=== PATIENT | female | born 1945 | race Caucasian/White ===

== ENCOUNTER 2018-07-28 13:38 | Inpatient (IN) ==
--- NOTE | 2018-07-28 13:59 | Emergency Department Note ---
Disposition Clinical Impression: Enlarged thyroid, Hepatic steatosis, Dilatation of pulmonic artery, Transaminitis Sacral fracture, closed Qualifiers: Encounter type: initial encounter Zone of sacrum fracture: unspecified portion of sacrum Qualified Code(s): S32.10XA - Unspecified fracture of sacrum, initial encounter for closed fracture Fall Qualifiers: Encounter type: initial encounter Qualified Code(s): W19.XXXA - Unspecified fall, initial encounter Pneumonia Qualifiers: Pneumonia type: due to unspecified organism Laterality: unspecified laterality Lung location: unspecified part of lung Qualified Code(s): J18.9 - Pneumonia, unspecified organism Bimalleolar fracture of left ankle Qualifiers: Encounter type: initial encounter Fracture type: closed Qualified Code(s): S82.842A - Displaced bimalleolar fracture of left lower leg, initial encounter for closed fracture Closed fracture of right distal fibula Qualifiers: Encounter type: initial encounter Fracture morphology: unspecified fracture morphology Qualified Code(s): S82.831A - Other fracture of upper and lower end of right fibula, initial encounter for closed fracture Disposition: Admitted As Inpatient Condition: Serious Referrals: Radha Garza MD [Primary Care Provider] - Forms: ED Satisfaction Letter Time of Disposition: 18:16 Fall HPI - General Chief Complaint: ED Extremity Injury, Lower Stated Complaint: bilat tib fib facture Time Seen by Provider: 07/28/18 13:47 Nursing Notes Reviewed: Yes Vital Signs Reviewed: Yes - History of Present Illness HPI Narrative: 72-year-old female presents from home via EMS to [facility] where she had initial evaluation and was subsequently [facility] Patient is sleeping but will arouse. She goes back to sleep. History obtained by daughter at bedside. Patient lives at home with family. At 7:30 this morning, she got up to walk to the bathroom and fell. Unknown cause of the fall. Daughter states that the patient does not remember the fall. She had obvious deformation of bilateral ankles. Review of systems limited secondary to patient's mental status. - Related Data Allergies Allergy/AdvReac Type Severity Reaction Status Date / Time No Known Allergies Allergy Verified 07/28/18 17:51 All systems ED: reviewed and negative except as stated. Review of Systems: As Per HPI Physical Exam Vital Signs Reviewed General: Patient is somnolent, sonorous, and in no acute distress. Head: atraumatic, normocephalic Eye: normal appearance, PERRL, EOMI, no scleral icterus, no conjunctival injection ENT: mucous membranes moist, normal external ear exam Neck: normal inspection, trachea midline, full ROM Chest: normal inspection, symmetric chest rise Respiratory: Poor respiratory effort. Bilateral breath sounds are even with scattered wheeze. No crackles or rhonchi. Cardiovascular: Regular rate and rhythm. No clicks, rubs, gallops, or murmors. Normal heart sounds. Bilateral radial pulses 2/4 equal. No pedal edema. Brisk capillary refill in bilateral great toes. Abdomen: Bowel sounds present normoactive. Abdomen is soft, nondistended, and nontender. No guarding or rebound. Musculoskeletal: Spontaneously moving all extremities. Skin: warm, dry, intact. Neuro: GCS 15. She is able to wiggle both right and left toes and has sensation to light touch as well as pinch. Psych: Patient's affect is appropriate for situation. Course Course Narrative: At [facility] X-ray right ankle shows comminuted slightly angled fracture of the distal shaft of the right fibula. Fracture displacement at the base of the right medial malleolus. Disruption of the right mortise joint with diffuse soft tissue swelling. X-ray left tibia-fibula shows bimalleolar fracture with both lateral posterior displacement. X-ray left foot shows disruption of left mortise joint with fracture of distal fibula. Partial posterior subluxation of talus with respect tibia. Diffuse soft tissue swelling. Urinalysis not concerning for UTI. Patient given 4 mg morphine, 4 mg Zofran both IV. 16:20 Discussed the patient with emissions engineer ortho, Dr. Escalona. He recommends we speak with podiatry. Discussed the patient with Dr. Stewart, podiatry. He will be operated patient tomorrow. He requests admission to the hospitalist given the patient's comorbidities. Nothing by mouth after midnight. Serum hematology is unremarkable. Serum chemistry shows transaminitis. Normal lipase. CT head without contrast unremarkable for etiology read. CT cervical spine shows no acute changes per radiology read. CT chest shows enlarged heterogeneous thyroid as well as dilated main pulmonary artery suspicious for pulmonary hypertension CT abdomen pelvis shows nondisplaced age-indeterminate sacral fracture, mild hepatic steatosis. X-ray chest concerning for CHF, left lower lobe pneumonia, cardiomegaly. Hilar enlargement-CT chest recommended. X-ray knee shows no acute changes. X-ray pelvis is unremarkable. X-ray Right tibia-fibula and right ankle shows comminuted distal fibular fracture with displacement of medial malleoli. Empiric azithromycin and ceftriaxone for community-acquired pneumonia. Patient's pain well-controlled. I discussed the above with the admitting hospitalist, Dr. Leonard, he agrees to accept the patient for continued evaluation monitoring. Cervical Spine CT 07/28/18 13:52 IMPRESSION: No acute cervical spine fracture. Multilevel degenerative change Heterogeneously enlarged thyroid tissue as described. Correlate with ultrasound D/ / Willis Cruz / Willis Cruz Interpreting Provider: Willis Cruz Chest X-Ray 07/28/18 13:52 IMPRESSION: 1. Findings typical of congestive heart failure. 2. Sequela related to pulmonary edema versus pneumonia lateral lower left lung. Probable small left pleural effusion. 3. Prominent right hilar silhouette is similar but larger when compared with prior study, most likely related to chronic main pulmonary artery enlargement though underlying adenopathy or mass is a consideration as well. Attention to this area on follow-up IV contrast-enhanced CT chest is recommended. 4. Calcific atherosclerosis aorta. 5. Cardiomegaly. RECOMMENDATION: IV contrast-enhanced CT chest D/ / Ranulfo Penny / Ranulfo Penny Interpreting Provider: Ranulfo Penny Pelvis X-Ray 07/28/18 13:52 IMPRESSION: Unremarkable AP pelvis radiograph. If pain persists or worsens, then additional evaluation with MRI is indicated to ensure no underlying radiographically occult process such as fracture, AVN or transient osteoporosis. D/ / Ranulfo Penny / Ranulfo Penny Interpreting Provider: Ranulfo Penny Foot X-Ray 07/28/18 13:59 IMPRESSION: Right tib-fib/right ankle: Comminuted fracture of the distal fibula, moderately displaced fracture of the medial malleolus and findings suspicious for nondisplaced fracture of the fibular head. Medial displacement of distal tibia in relation to the talus. D/ / Ab Mayen MD / Ab Mayen MD Interpreting Provider: Ab Mayen MD Tibia/Fibula X-Ray 07/28/18 13:59 IMPRESSION: Right tib-fib/right ankle: Comminuted fracture of the distal fibula, moderately displaced fracture of the medial malleolus and findings suspicious for nondisplaced fracture of the fibular head. Medial displacement of distal tibia in relation to the talus. D/ / Ab Mayen MD / Ab Mayen MD Interpreting Provider: Ab Mayen MD Knee X-Ray 07/28/18 14:54 IMPRESSION: 1. No acute bony or joint abnormality in either knee 2. Tricompartmental osteoarthritic changes noted in both knees D/ / Jamie Parker MD / Jamie Parker MD Interpreting Provider: Jamie Parker MD Head CT 07/28/18 15:35 IMPRESSION: No acute intracranial abnormality. D/ / Roopa Blanca Cha, MD / Roopa Blanca Cha, MD Interpreting Provider: Roopa Blanca Cha, MD Abdomen/Pelvis CT 07/28/18 15:49 IMPRESSION: Age-indeterminate nondisplaced fracture of the sacrum. Correlate for point tenderness. Dilated main pulmonary artery which can be seen with pulmonary hypertension. Bilateral airspace disease could represent atelectasis or pneumonia. Enlarged and heterogeneous thyroid. Consider ultrasound for further evaluation. Mediastinal lymphadenopathy is unchanged from March of 2013. Mild hepatic steatosis. D/ / Ab Mayen MD / bA Mayen MD Interpreting Provider: Ab Mayen MD Chest CT 07/28/18 17:00 IMPRESSION: Age-indeterminate nondisplaced fracture of the sacrum. Correlate for point tenderness. Dilated main pulmonary artery which can be seen with pulmonary hypertension. Bilateral airspace disease could represent atelectasis or pneumonia. Enlarged and heterogeneous thyroid. Consider ultrasound for further evaluation. Mediastinal lymphadenopathy is unchanged from March of 2013. Mild hepatic steatosis. D/ / Ab Mayen MD / Ab Mayen MD Interpreting Provider: Ab Mayen MD Vital Signs Temperature 97.8 F 07/28/18 13:47 Pulse Rate 89 07/28/18 13:47 Respiratory Rate 10 07/28/18 13:47 Blood Pressure 136/94 07/28/18 13:47 O2 Sat by Pulse Oximetry 98 07/28/18 13:47 Temperature 97.8 F 07/28/18 13:47 Pulse Rate 91 07/28/18 17:49 Respiratory Rate 14 07/28/18 17:49 Blood Pressure 126/75 07/28/18 17:49 O2 Sat by Pulse Oximetry 99 07/28/18 17:49 Oxygen Delivery Oxygen Delivery Oximizer Fall - Lab Data Result diagrams: 07/28/18 13:52 07/28/18 13:52 Lab Results 07/28/18 07/28/18 07/28/18 Range/Units 13:52 13:52 13:52 WBC 7.5 (4.3-11.1) K/mcL RBC 5.27 H (3.82-4.97) M/mcL Hgb 15.4 (11.5-15.4) g/dL Hct 50.7 H (35.3-44.9) % MCV 96.2 (83.0-100.0) fL MCH 29.2 (28.0-33.3) pg MCHC 30.4 L (31.6-35.5) g/dL RDW 14.4 (11.5-14.5) % Plt Count 174 (140-400) K/mcL MPV 9.9 (9.4-12.4) fL Immature Gran % 0.9 (0-4) % Seg Neutrophils % 70.2 % Lymphocytes % 20.7 % Monocytes % 7.8 % Eosinophils % 0.1 % Basophils % 0.3 % Neutrophils # 5.2 (1.6-8.9) K/mcL Lymphocytes # 1.6 (0.6-4.6) K/mcL Monocytes # 0.6 (0.0-1.3) K/mcL Eosinophils # 0.0 (0.0-0.6) K/mcL Basophils # 0.0 (0.0-0.2) K/mcL Nucleated RBCs/100 WBC 0.9 H (0) /100 WBC PT 16.2 H (9.4-12.1) Seconds INR 1.4 APTT 28.3 (26.0-36.0) Seconds Sodium 141 (136-145) mEq/L Potassium 3.8 (3.5-5.1) mEq/L Chloride 98 (98-107) mEq/L Carbon Dioxide 32 H (23-29) mEq/L BUN 41 H (8-23) mg/dL Creatinine 1.07 (0.60-1.20) mg/dL Est GFR ( Amer) > 60 (> 60) Est GFR (Non-Af Amer) 50 L (> 60) BUN/Creatinine Ratio 38 H (6-26) Glucose 126 H (70-105) mg/dL Calculated Osmolality 304 H (280-300) Calcium 8.6 (8.6-10.3) mg/dL Total Bilirubin 0.7 (0.3-1.0) mg/dL AST 749 H (13-39) Units/L ALT 1065 H (7-52) Units/L Alkaline Phosphatase 111 H (34-104) Units/L Ammonia (16-53) mcmol/L Serum Total Protein 6.3 L (6.4-8.9) g/dL Albumin 3.6 (3.5-5.7) g/dL Globulin 2.7 (2.4-3.5) g/dL Albumin/Globulin Ratio 1.3 (1.1-2.2) Lipase 11 (11-82) Units/L Specimen Rejected 07/28/18 07/28/18 Range/Units 16:52 17:00 WBC (4.3-11.1) K/mcL RBC (3.82-4.97) M/mcL Hgb (11.5-15.4) g/dL Hct (35.3-44.9) % MCV (83.0-100.0) fL MCH (28.0-33.3) pg MCHC (31.6-35.5) g/dL RDW (11.5-14.5) % Plt Count (140-400) K/mcL MPV (9.4-12.4) fL Immature Gran % (0-4) % Seg Neutrophils % % Lymphocytes % % Monocytes % % Eosinophils % % Basophils % % Neutrophils # (1.6-8.9) K/mcL Lymphocytes # (0.6-4.6) K/mcL Monocytes # (0.0-1.3) K/mcL Eosinophils # (0.0-0.6) K/mcL Basophils # (0.0-0.2) K/mcL Nucleated RBCs/100 WBC (0) /100 WBC PT (9.4-12.1) Seconds INR APTT (26.0-36.0) Seconds Sodium (136-145) mEq/L Potassium (3.5-5.1) mEq/L Chloride (98-107) mEq/L Carbon Dioxide (23-29) mEq/L BUN (8-23) mg/dL Creatinine (0.60-1.20) mg/dL Est GFR ( Amer) (> 60) Est GFR (Non-Af Amer) (> 60) BUN/Creatinine Ratio (6-26) Glucose (70-105) mg/dL Calculated Osmolality (280-300) Calcium (8.6-10.3) mg/dL Total Bilirubin (0.3-1.0) mg/dL AST (13-39) Units/L ALT (7-52) Units/L Alkaline Phosphatase (34-104) Units/L Ammonia 59 H (16-53) mcmol/L Serum Total Protein (6.4-8.9) g/dL Albumin (3.5-5.7) g/dL Globulin (2.4-3.5) g/dL Albumin/Globulin Ratio (1.1-2.2) Lipase (11-82) Units/L Specimen Rejected Hemolyzed
[2018-07-28 14:46] LABS: Basophils % 0.3 %; Eosinophils % 0.1 %; Hematocrit 50.7 % (35.3-44.9); Hemoglobin 15.4 g/dL (11.5-15.4); Immature Granulocytes % 0.9 % (0-4); Lymphocytes # 1.6 K/mcL (0.6-4.6); Lymphocytes % 20.7 %; Mean Corpuscular HGB Conc 30.4 g/dL (31.6-35.5); Mean Corpuscular Hemoglobin 29.2 pg (28.0-33.3); Mean Corpuscular Volume 96.2 fL (83.0-100.0); Mean Platelet Volume 9.9 fL (9.4-12.4); Monocytes # 0.6 K/mcL (0.0-1.3); Monocytes % 7.8 %; Neutrophils # 5.2 K/mcL (1.6-8.9); Nucleated Red Blood Cells 0.9 /100 WBC (0); Platelet Count 174 K/mcL (140-400); Red Blood Count 5.27 M/mcL (3.82-4.97); Red Cell Distribution Width 14.4 % (11.5-14.5); Segmented Neutrophils % 70.2 %
[2018-07-28 14:48] LABS: INR 1.4; Prothrombin Time 16.2 Seconds (9.4-12.1)
[2018-07-28 14:51] LABS: Activated Partial Thrombo Time 28.3 Seconds (26.0-36.0)
[2018-07-28] MEDS ORDERED: Isovue-370 500 ML BOTTLE IVP ONE ×2 (14:53→15:49)
[2018-07-28 15:31] LABS: Alanine Aminotransferase 1065 Units/L (7-52); Albumin 3.6 g/dL (3.5-5.7); Albumin/Globulin Ratio 1.3 (1.1-2.2); Alkaline Phosphatase 111 Units/L (34-104); Aspartate Amino Transferase 749 Units/L (13-39); BUN/Creatinine Ratio 38 (6-26); Bilirubin,Total 0.7 mg/dL (0.3-1.0); Blood Urea Nitrogen 41 mg/dL (8-23); Calcium 8.6 mg/dL (8.6-10.3); Carbon Dioxide 32 mEq/L (23-29); Chloride 98 mEq/L (98-107); Globulin 2.7 g/dL (2.4-3.5); Glucose 126 mg/dL (70-105); Osmolality,Calculated 304 (280-300); Potassium 3.8 mEq/L (3.5-5.1); Sodium 141 mEq/L (136-145); Total Protein 6.3 g/dL (6.4-8.9); eGFR For Non-African Americans 50 (> 60)
[2018-07-28 18:08] LABS: Lipase 11 Units/L (11-82)
[2018-07-28] MEDS ORDERED: Azithromycin 500 MG in D5% in Water 250 ML IVPB ONE (18:32)
[2018-07-28] MEDS ORDERED: cefTRIAXone 2,000 MG in 0.9 % Sodium Chloride Mini Bag 100 ML IVPB ONE (18:32)
--- NOTE | 2018-07-28 18:32 | Emergency Department Note ---
Disposition Clinical Impression: Enlarged thyroid, Hepatic steatosis, Dilatation of pulmonic artery, Transaminitis Sacral fracture, closed Qualifiers: Encounter type: initial encounter Zone of sacrum fracture: unspecified portion of sacrum Qualified Code(s): S32.10XA - Unspecified fracture of sacrum, initial encounter for closed fracture Fall Qualifiers: Encounter type: initial encounter Qualified Code(s): W19.XXXA - Unspecified fall, initial encounter Pneumonia Qualifiers: Pneumonia type: due to unspecified organism Laterality: unspecified laterality Lung location: unspecified part of lung Qualified Code(s): J18.9 - Pneumonia, unspecified organism Bimalleolar fracture of left ankle Qualifiers: Encounter type: initial encounter Fracture type: closed Qualified Code(s): S82.842A - Displaced bimalleolar fracture of left lower leg, initial encounter for closed fracture Closed fracture of right distal fibula Qualifiers: Encounter type: initial encounter Fracture morphology: unspecified fracture morphology Qualified Code(s): S82.831A - Other fracture of upper and lower end of right fibula, initial encounter for closed fracture Disposition: Admitted As Inpatient Condition: Serious General Adult HPI - General Chief complaint: ED Extremity Injury, Lower Stated complaint: bilat tib fib facture Time Seen by Provider: 07/28/18 13:47 Source: EMS Limitations: altered mental status - History of Present Illness Pain Scale: 0 - Related Data Allergies Allergy/AdvReac Type Severity Reaction Status Date / Time No Known Allergies Allergy Verified 07/28/18 17:51 Past Medical History - Past Medical History Medical history: Reports: CHF, COPD, hyperlipidemia, hypertension Psychiatric history: Reports: no psych history - Social History Smoking Status: Current every day smoker Smokeless Tobacco Status: No Alcohol use: Reports: none Drug use: Reports: none Physical Exam - General Limitations: altered mental status General appearance: lethargic Course Vital Signs Temperature 97.8 F 07/28/18 13:47 Pulse Rate 89 07/28/18 13:47 Respiratory Rate 10 07/28/18 13:47 Blood Pressure 136/94 07/28/18 13:47 O2 Sat by Pulse Oximetry 98 07/28/18 13:47 Temperature 97.8 F 07/28/18 13:47 Pulse Rate 91 07/28/18 17:49 Respiratory Rate 14 07/28/18 17:49 Blood Pressure 126/75 07/28/18 17:49 O2 Sat by Pulse Oximetry 99 07/28/18 17:49 Oxygen Delivery Oxygen Delivery Oximizer Medical Decision Making - Lab Data Result diagrams: 07/28/18 13:52 07/28/18 13:52 Lab Results 07/28/18 07/28/18 07/28/18 Range/Units 13:52 13:52 13:52 WBC 7.5 (4.3-11.1) K/mcL RBC 5.27 H (3.82-4.97) M/mcL Hgb 15.4 (11.5-15.4) g/dL Hct 50.7 H (35.3-44.9) % MCV 96.2 (83.0-100.0) fL MCH 29.2 (28.0-33.3) pg MCHC 30.4 L (31.6-35.5) g/dL RDW 14.4 (11.5-14.5) % Plt Count 174 (140-400) K/mcL MPV 9.9 (9.4-12.4) fL Immature Gran % 0.9 (0-4) % Seg Neutrophils % 70.2 % Lymphocytes % 20.7 % Monocytes % 7.8 % Eosinophils % 0.1 % Basophils % 0.3 % Neutrophils # 5.2 (1.6-8.9) K/mcL Lymphocytes # 1.6 (0.6-4.6) K/mcL Monocytes # 0.6 (0.0-1.3) K/mcL Eosinophils # 0.0 (0.0-0.6) K/mcL Basophils # 0.0 (0.0-0.2) K/mcL Nucleated RBCs/100 WBC 0.9 H (0) /100 WBC PT 16.2 H (9.4-12.1) Seconds INR 1.4 APTT 28.3 (26.0-36.0) Seconds Sodium 141 (136-145) mEq/L Potassium 3.8 (3.5-5.1) mEq/L Chloride 98 (98-107) mEq/L Carbon Dioxide 32 H (23-29) mEq/L BUN 41 H (8-23) mg/dL Creatinine 1.07 (0.60-1.20) mg/dL Est GFR ( Amer) > 60 (> 60) Est GFR (Non-Af Amer) 50 L (> 60) BUN/Creatinine Ratio 38 H (6-26) Glucose 126 H (70-105) mg/dL Calculated Osmolality 304 H (280-300) Calcium 8.6 (8.6-10.3) mg/dL Total Bilirubin 0.7 (0.3-1.0) mg/dL AST 749 H (13-39) Units/L ALT 1065 H (7-52) Units/L Alkaline Phosphatase 111 H (34-104) Units/L Ammonia (16-53) mcmol/L Creatine Kinase 31 (30-223) Units/L Serum Total Protein 6.3 L (6.4-8.9) g/dL Albumin 3.6 (3.5-5.7) g/dL Globulin 2.7 (2.4-3.5) g/dL Albumin/Globulin Ratio 1.3 (1.1-2.2) Lipase 11 (11-82) Units/L Specimen Rejected 07/28/18 07/28/18 Range/Units 16:52 17:00 WBC (4.3-11.1) K/mcL RBC (3.82-4.97) M/mcL Hgb (11.5-15.4) g/dL Hct (35.3-44.9) % MCV (83.0-100.0) fL MCH (28.0-33.3) pg MCHC (31.6-35.5) g/dL RDW (11.5-14.5) % Plt Count (140-400) K/mcL MPV (9.4-12.4) fL Immature Gran % (0-4) % Seg Neutrophils % % Lymphocytes % % Monocytes % % Eosinophils % % Basophils % % Neutrophils # (1.6-8.9) K/mcL Lymphocytes # (0.6-4.6) K/mcL Monocytes # (0.0-1.3) K/mcL Eosinophils # (0.0-0.6) K/mcL Basophils # (0.0-0.2) K/mcL Nucleated RBCs/100 WBC (0) /100 WBC PT (9.4-12.1) Seconds INR APTT (26.0-36.0) Seconds Sodium (136-145) mEq/L Potassium (3.5-5.1) mEq/L Chloride (98-107) mEq/L Carbon Dioxide (23-29) mEq/L BUN (8-23) mg/dL Creatinine (0.60-1.20) mg/dL Est GFR ( Amer) (> 60) Est GFR (Non-Af Amer) (> 60) BUN/Creatinine Ratio (6-26) Glucose (70-105) mg/dL Calculated Osmolality (280-300) Calcium (8.6-10.3) mg/dL Total Bilirubin (0.3-1.0) mg/dL AST (13-39) Units/L ALT (7-52) Units/L Alkaline Phosphatase (34-104) Units/L Ammonia 59 H (16-53) mcmol/L Creatine Kinase (30-223) Units/L Serum Total Protein (6.4-8.9) g/dL Albumin (3.5-5.7) g/dL Globulin (2.4-3.5) g/dL Albumin/Globulin Ratio (1.1-2.2) Lipase (11-82) Units/L Specimen Rejected Hemolyzed Attestation Statement - Attestation Attestation: I examined this patient and my medical decision-making was reviewed with the Resident Physician. I agree with the documented findings, disposition and treatment plan as described except to the extent set forth below. 72 year old female with a history of a fall and evaluted at a previous ED today with bilateral tib/fib fractures of which podiatry has been consulted and will operate on tomorrow. Columba also has an age indeterminate sacral fracutre and possible pnuemonia which is likely aspiration with an uknonw down time. PAtint has increase hepatic function but normal bilirubing and piror cholecystectomy. Spoke about case with Dr. sharp who accepts columba for admission to his service
[2018-07-28 18:53] LABS: Creatine Kinase 31 Units/L (30-223)
[2018-07-29 00:08] LABS: ABG Base Excess 12 mEq/L (-2 to 3); ABG HCO3 43 mEq/L (21-27); ABG Oxygen Saturation 90 % (95-98); ABG PCO2 85 mmHg (35-45); ABG PH 7.32 pH Units (7.32-7.45); ABG PO2 68 mmHg (85-104); ABG TCO2 46 mEq/L (20-26)
[2018-07-29] MEDS ORDERED: Naloxone 0.4 MG/ML INJ IVP PRN (00:50)
[2018-07-29] MEDS ORDERED: Acetaminophen 325 MG TABLET PO PRN (00:50)
[2018-07-29] MEDS ORDERED: Ondansetron 4 MG/2 ML VIAL IVP PRN (00:50)
[2018-07-29] MEDS ORDERED: Albuterol 2.5 MG/3 ML NEBULIZER IH PRN (00:59)
[2018-07-29] MEDS ORDERED: Simethicone 80 MG TAB.CHEW PO PRN (01:02)
[2018-07-29] MEDS ORDERED: NON-FORMULARY MEDICATION 1 EACH EACH (Nitroglycerin 0.4 MG) PO SCH (01:15)
[2018-07-29] MEDS ORDERED: Nitroglycerin 0.4 MG TAB.SUBL SL PRN (01:17)
[2018-07-29 02:02] LABS: Basophils % 0.3 %; Eosinophils % 0.2 %; Hematocrit 48.8 % (35.3-44.9); Hemoglobin 14.6 g/dL (11.5-15.4); Immature Granulocytes % 0.7 % (0-4); Lymphocytes # 0.9 K/mcL (0.6-4.6); Mean Corpuscular HGB Conc 29.9 g/dL (31.6-35.5); Mean Corpuscular Hemoglobin 29.1 pg (28.0-33.3); Mean Corpuscular Volume 97.2 fL (83.0-100.0); Mean Platelet Volume 9.9 fL (9.4-12.4); Monocytes # 0.6 K/mcL (0.0-1.3); Monocytes % 10.2 %; Neutrophils # 4.5 K/mcL (1.6-8.9); Nucleated Red Blood Cells 1.5 /100 WBC (0); Platelet Count 131 K/mcL (140-400); Red Blood Count 5.02 M/mcL (3.82-4.97); Red Cell Distribution Width 14.4 % (11.5-14.5); Segmented Neutrophils % 74.6 %
[2018-07-29 02:14] LABS: INR 1.4; Prothrombin Time 15.8 Seconds (9.4-12.1)
[2018-07-29 02:17] LABS: Activated Partial Thrombo Time 27.4 Seconds (26.0-36.0)
[2018-07-29 02:22] LABS: Acetaminophen < 10 mcg/mL (10-20); Salicylate < 2.5 mg/dL (15.0-30.0)
[2018-07-29 02:37] LABS: Alanine Aminotransferase 856 Units/L (7-52); Albumin 3.2 g/dL (3.5-5.7); Albumin/Globulin Ratio 1.3 (1.1-2.2); Alkaline Phosphatase 97 Units/L (34-104); Aspartate Amino Transferase 434 Units/L (13-39); BUN/Creatinine Ratio 35 (6-26); Bilirubin,Direct 0.2 mg/dL (0.0-0.2); Bilirubin,Indirect 0.2 mg/dL (0.0-1.2); Bilirubin,Total 0.4 mg/dL (0.3-1.0); Blood Urea Nitrogen 32 mg/dL (8-23); Calcium 8.3 mg/dL (8.6-10.3); Carbon Dioxide 37 mEq/L (23-29); Chloride 99 mEq/L (98-107); Globulin 2.5 g/dL (2.4-3.5); Glucose 115 mg/dL (70-105); Magnesium 1.5 mg/dL (1.6-2.6); Osmolality,Calculated 302 (280-300); Sodium 142 mEq/L (136-145); Total Protein 5.7 g/dL (6.4-8.9); eGFR For Non-African Americans > 60 (> 60)
--- NOTE | 2018-07-29 03:20 | Internal Med History&Physical ---
Date of Encounter: 07/28/18 Time of Encounter: 21:00 Internal Medicine - H&P: HPI Chief complaint: s/p fall; syncope; ankle fractures Admitted From: Emergency Dept Plans for Post Hospital Care: Transfer [facility] History of present illness: Ms. Navarrete is a 72 year old female who was transferred to our ER from [facility]. She reportedly fell tonight on to the bathroom floor and broke both ankles (tib/fib). ER contacted Dr. Escalona for consultation, but he deferred to Dr. Stewart from podiatry. Patient was then admitted to hospitalist service with a podiatry/orthopedic consultation. Upon my assessment of the patient, patient is somnolent, confused, and a very poor historian. I summoned her daughter to the bedside to provide a history. Patient reportedly actually had a syncopal spell today at home. Her daughter found her on the bathroom floor with both ankles projecting outward and patient landed on her knees. There was no known reported head trauma. However, she had multiple scans in the ER which were negative except for the ankle fractures. Routine labs revealed significant transaminitis on CT of the chest concerning for pneumonia. According to daughter, patient has severe COPD requiring oxygen. Patient was quite somnolent and difficult to arouse. I ordered a stat arterial blood gas, which confirmed respiratory acidosis. I therefore placed her on BiPAP, and we will repeat arterial blood gas in the morning. Regarding her transaminitis, patient does not drink alcohol. She has been using Tylenol for her joint aches and pains. I ordered a stat acetaminophen and salicylate level, both of which were undetectable. Patient and daughter both deny any trauma or injury to her liver or abdomen with today's fall. Past Med Surg Social Fam HX - Past Medical History Source: obtained from family, other (ER records) Medical history: CHF, COPD, hyperlipidemia, hypertension Psychiatric history: no psych history - Past Surgical History Surgical History: hysterectomy - Social History Smoking Status: Current every day smoker Smokeless Tobacco Status: No Alcohol use: none Drug use: none Current living situation: Home, With Family Activity Level: Independent ambulation - Family History Daughter Hx Family Respiratory Disorders: Yes (COPD/ EMPHYSEMA) Father Hx Family Cardiac Disorders: Yes ([place]) Hx Family Endocrine Disorder: Yes (DM) Internal Medicine - H&P: Meds Escitalopram 20 mg PO DAILY 07/28/18 [History] Aspirin 81 mg PO DAILY 07/29/18 [History] Colace 100 mg PO DAILY 07/29/18 [History] Furosemide [Lasix] 40 mg PO DAILY 07/29/18 [History] Ibuprofen 800 mg PO TID PRN 07/29/18 [History] Lansoprazole 30 mg PO DAILY 07/29/18 [History] Lisinopril 10 mg PO DAILY 07/29/18 [History] Montelukast [Singulair] 10 mg PO DAILY 07/29/18 [History] Mucinex Dm ER 600-30 mg Tablet 1,200 mg PO BID 07/29/18 [History] Nitroglycerin 0.4 mg PO Q5MIN 07/29/18 [History] Potassium Chloride 20 mEq/100 mL 20 meq PO DAILY 07/29/18 [History] Simethicone [Gas-X] 80 mg PO BID PRN 07/29/18 [History] Allergy/AdvReac Type Severity Reaction Status Date / Time No Known Allergies Allergy Verified 07/28/18 17:51 ROS unobtainable: due to mental status Review of systems: per daughter: + syncope; no other obtainable ROS - Constitutional Vitals: Temp Pulse Resp BP Pulse Ox 97.8 F 77 20 131/79 92 07/28/18 21:29 07/28/18 21:29 07/29/18 00:30 07/28/18 21:29 07/29/18 00:30 General appearance: Present: A&O X 1, mild distress. Absent: answers questions appropriately Exam: somnolent; arousable to command but then drifts off to sleep - Head Head exam: Present: normal inspection - Eye Eye exam: Present: EOMI, PERRL. Absent: scleral icterus Pupils: Present: normal accommodation - ENT ENT exam: Present: mucous membranes dry, normal oropharynx - Neck Neck exam general surgery: Present: full ROM, supple, trachea midline. Absent: lymphadenopathy, tenderness, nuchal rigidity, thyromegaly - Respiratory Respiratory exam: Present: prolonged expiratory phase, rhonchi, wheezes. Absent: chest wall tenderness, rales - Cardiovascular Cardiovascular exam: Present: distant heart sounds, +S1, +S2. Absent: diastolic murmur, systolic murmur - GI/Abdominal GI/Abdominal exam: Present: normal bowel sounds, soft. Absent: guarding, hepatomegaly, mass, rebound, splenomegaly, tenderness - Extremities Exam Extremities exam: Present: tenderness, warm, radial pulses palpable and symmetrical. Absent: calf tenderness, pedal edema Additional comments: both legs/ankles splinted and wrapped per ER - Back Exam Back exam: Absent: CVA tenderness (L), CVA tenderness (R) - Neurological Exam Neurological exam: Present: altered, no focal deficits Additional comments: somnolent; no focal deficits when awake; close to baseline per daughter - Psychiatric Additional comments: somnolent - Skin Skin exam: Present: dry, intact, warm Internal Med - H&P Results - Labs CBC & Chem 7: 07/29/18 01:43 07/29/18 01:43 Labs: Short CBC 07/28/18 07/29/18 Range/Units 13:52 01:43 WBC 7.5 6.1 (4.3-11.1) K/mcL Hgb 15.4 14.6 (11.5-15.4) g/dL Hct 50.7 H 48.8 H (35.3-44.9) % Plt Count 174 131 L (140-400) K/mcL Neutrophils # 5.2 4.5 (1.6-8.9) K/mcL BMP 07/28/18 07/29/18 13:52 01:43 Sodium 141 142 Potassium 3.8 4.0 Chloride 98 99 Carbon Dioxide 32 H 37 H BUN 41 H 32 H Creatinine 1.07 0.91 Glucose 126 H 115 H Calcium 8.6 8.3 L Liver Function 07/28/18 07/29/18 Range/Units 13:52 01:43 Total Bilirubin 0.7 0.4 (0.3-1.0) mg/dL Direct Bilirubin 0.2 (0.0-0.2) mg/dL AST 749 H 434 H (13-39) Units/L ALT 1065 H 856 H (7-52) Units/L Alkaline Phosphatase 111 H 97 (34-104) Units/L Albumin 3.6 3.2 L (3.5-5.7) g/dL - ABG Interpretation Interpretation: ABG interpreted by me ABG results: 07/28/18 23:57 ABG pH 7.32 ABG pCO2 85 H* ABG pO2 68 L ABG HCO3 43 H ABG Total CO2 46 H ABG O2 Saturation 90 L ABG Base Excess 12 H Interpretation: respiratory acidosis - Impressions ITS Impressions Cervical Spine CT 07/28/18 13:52 IMPRESSION: No acute cervical spine fracture. Multilevel degenerative change Heterogeneously enlarged thyroid tissue as described. Correlate with ultrasound D/ / Willis Cruz / Willis Cruz Interpreting Provider: Willis Cruz Chest X-Ray 07/28/18 13:52 IMPRESSION: 1. Findings typical of congestive heart failure. 2. Sequela related to pulmonary edema versus pneumonia lateral lower left lung. Probable small left pleural effusion. 3. Prominent right hilar silhouette is similar but larger when compared with prior study, most likely related to chronic main pulmonary artery enlargement though underlying adenopathy or mass is a consideration as well. Attention to this area on follow-up IV contrast-enhanced CT chest is recommended. 4. Calcific atherosclerosis aorta. 5. Cardiomegaly. RECOMMENDATION: IV contrast-enhanced CT chest D/ / Ranulfo Penny / Ranulfo Penny Interpreting Provider: Ranulfo Penny Pelvis X-Ray 07/28/18 13:52 IMPRESSION: Unremarkable AP pelvis radiograph. If pain persists or worsens, then additional evaluation with MRI is indicated to ensure no underlying radiographically occult process such as fracture, AVN or transient osteoporosis. D/ / Ranulfo Penny / Ranulfo Penny Interpreting Provider: Ranulfo Penny Foot X-Ray 07/28/18 13:59 IMPRESSION: Right tib-fib/right ankle: Comminuted fracture of the distal fibula, moderately displaced fracture of the medial malleolus and findings suspicious for nondisplaced fracture of the fibular head. Medial displacement of distal tibia in relation to the talus. D/ / Ab Mayen MD / Ab Mayen MD Interpreting Provider: Ab Mayen MD Tibia/Fibula X-Ray 07/28/18 13:59 IMPRESSION: Right tib-fib/right ankle: Comminuted fracture of the distal fibula, moderately displaced fracture of the medial malleolus and findings suspicious for nondisplaced fracture of the fibular head. Medial displacement of distal tibia in relation to the talus. D/ / Ab Mayen MD / Ab Mayen MD Interpreting Provider: Ab Mayen MD Knee X-Ray 07/28/18 14:54 IMPRESSION: 1. No acute bony or joint abnormality in either knee 2. Tricompartmental osteoarthritic changes noted in both knees D/ / Jamie Parker MD / Jamie Parker MD Interpreting Provider: Jamie Parker MD Head CT 07/28/18 15:35 IMPRESSION: No acute intracranial abnormality. D/ / Roopa Blanca Cha, MD / Roopa Blanca Cha, MD Interpreting Provider: Roopa Blanca Cha, MD Abdomen/Pelvis CT 07/28/18 15:49 IMPRESSION: Age-indeterminate nondisplaced fracture of the sacrum. Correlate for point tenderness. Dilated main pulmonary artery which can be seen with pulmonary hypertension. Bilateral airspace disease could represent atelectasis or pneumonia. Enlarged and heterogeneous thyroid. Consider ultrasound for further evaluation. Mediastinal lymphadenopathy is unchanged from March of 2013. Mild hepatic steatosis. D/ / Ab Mayen MD / Ab Mayen MD Interpreting Provider: Ab Mayen MD Chest CT 07/28/18 17:00 IMPRESSION: Age-indeterminate nondisplaced fracture of the sacrum. Correlate for point tenderness. Dilated main pulmonary artery which can be seen with pulmonary hypertension. Bilateral airspace disease could represent atelectasis or pneumonia. Enlarged and heterogeneous thyroid. Consider ultrasound for further evaluation. Mediastinal lymphadenopathy is unchanged from March of 2013. Mild hepatic steatosis. D/ / Ab Mayen MD / Ab Mayen MD Interpreting Provider: Ab Mayen MD - Diagnostic Studies CT scan - chest Status: image reviewed by me (suspect bibasilar pneumonia) - Assessment and Plan (1) Acute respiratory failure with hypoxia and hypercarbia Current Visit: Yes Status: Acute Assessment and plan: 1. I ordered BIPap on patient and will repeat ABG in the morning. 2. Will schedule Duonebs and PRN albuterol nebs. 3. Will schedule steroids. 4. Close monitoring on telemetry and pulse ox. (2) CHF (congestive heart failure) Current Visit: Yes Status: Chronic Assessment and plan: 1. No acute CHF now. 2. Will order ECHO and monitor fluid balance. Qualifiers: Heart failure type: unspecified Heart failure chronicity: chronic Qualified Code(s): I50.9 - Heart failure, unspecified (3) Bimalleolar fracture of left ankle Current Visit: Yes Status: Acute Assessment and plan: 1. Pain control. 2. Consult to Ortho/Podiatry. Qualifiers: Encounter type: initial encounter Fracture type: closed Qualified Code(s): S82.842A - Displaced bimalleolar fracture of left lower leg, initial encounter for closed fracture (4) Pneumonia Current Visit: Yes Status: Suspected Assessment and plan: 1. Blood culture and influenza testing ordered. 2. Will continue IV antibiotics and respiratory treatments as above. Qualifiers: Pneumonia type: due to unspecified organism Laterality: bilateral Lung lo cation: lower lobe of lung Qualified Code(s): J18.1 - Lobar pneumonia, unspecified organism (5) Transaminitis Current Visit: Yes Status: Acute Assessment and plan: 1. Will trend LFT's. 2. ASA and salicylate levels obtained. 3. Liver U/S ordered. (6) DVT prophylaxis Current Visit: Yes Status: Acute Assessment and plan: 1. Heparin SQ.
[2018-07-29] MEDS: traMADol 50 MG TABLET PO PRN ×2 (04:29→22:26)
[2018-07-29] MEDS: Ipratropium/Albuterol Neb 3 ML IH SCH ×4 (04:35→21:47)
[2018-07-29] MEDS: *HR* HYDROcodone/Acet 5/325 mg TABLET PO PRN ×2 (06:18→12:11)
[2018-07-29] MEDS: methylPREDNISolone 125 MG/2 ML VIAL IVP SCH ×2 (06:18→16:54)
[2018-07-29] MEDS: *HR* Heparin 5,000 UNIT/ML VIAL SQ SCH ×2 (06:19→15:02)
[2018-07-29 06:53] LABS: ABG Base Excess 11 mEq/L (-2 to 3); ABG HCO3 41 mEq/L (21-27); ABG Oxygen Saturation 93 % (95-98); ABG PCO2 78 mmHg (35-45); ABG PH 7.33 pH Units (7.32-7.45); ABG PO2 77 mmHg (85-104); ABG TCO2 44 mEq/L (20-26)
[2018-07-29 07:06] LABS: Hepatitis B Surface Antigen Nonreactive (Nonreactive)
[2018-07-29 07:35] LABS: Hepatitis B Core IgM Nonreactive (Nonreactive)
[2018-07-29 07:36] LABS: Hepatitis C Virus Antibody Nonreactive (Nonreactive)
[2018-07-29 07:37] LABS: Hepatitis A Antibody IgM Nonreactive (Nonreactive)
[2018-07-29 08:24] LABS: Creatine Kinase 48 Units/L (30-223); Gamma Glutamyl Transpeptidase 26 Units/L (1-24)
[2018-07-29] MEDS: GuaiFENesin/Dextromethorphan TABLET PO SCH ×2 (09:39→19:45)
[2018-07-29] MEDS: Ringers Solution, Lactated 1,000 ML IVC SCH ×2 (09:47→18:51)
[2018-07-29] MEDS: cefTRIAXone 2,000 MG in Water for inj. (sterile) 20 ML 20 ML IVP SCH (09:48)
--- NOTE | 2018-07-29 10:21 | Event Note ---
Date of Encounter: 07/29/18 Time of Encounter: 10:22 72 year old female Hx of COPD presented with fall, XR showed bilateral ankle fracture. Pt was also found somlent and ABG showed chronic CO2 retention, normal PH and low PO2. BiPAP was applied. Labs showed elevated AST/ALT but normal bili and ALP, not typical for hepatitis. Normal CPK and GGT. Hepatitis panel normal. Pending RUQ US. CT showed mild hepatic steatosis. Poidatry consult.
--- NOTE | 2018-07-29 13:45 | Podiatry Consult Note ---
Date of Encounter: 07/29/18 Time of Encounter: 11:50 Assessment and Plan (1) Bimalleolar fracture of left ankle Current visit: Yes Status: Acute Assessment: -Posterior splint intact, no strike through noted, no swelling above or below splint -Splint removed -Ecchymosis noted medial aspect of left ankle -Edema 1/4 -1/4 PT/DP pulse, cap refill immediate to all digits -Movement of toes noted -No fracture blisters noted Plan: -Closed reduction without anesthesia completed by Dr. Richter -Post reduction x-rays obtained at bedside and reviewed -Posterior splint and sugar-tong splint applied using cast padding, splint, and YIN -No swelling noted above or below splint -Toes pink with immediate cap refill noted -Patient instructed to report any pain that is not relieved with medication, swelling of digits, or toes becoming blueish or purple -Keep lower extremities elevated -Patient to go to surgery tomorrow with Dr. Richter and Dr. Khan for bilateral ORIF ankle fractures -NPO after midnight -Hold Heparin restart on 07/31/18 Qualifiers: Encounter type: initial encounter Fracture type: closed Qualified Code(s): S82.842A - Displaced bimalleolar fracture of left lower leg, initial encounter for closed fracture (2) Closed fracture of right distal fibula Current visit: Yes Status: Acute Assessment: -Posterior splint intact, no strike through noted, no swelling above or below splint -Splint removed -Ecchymosis noted medial aspect of right ankle -Edema 1/4 -1/4 PT/DP pulse, cap refill immediate to all digits -Movement of toes noted -No fracture blisters noted -Tenting noted -X-ray: XR/XR tibia fibula RT IMPRESSION: Right tib-fib/right ankle: Comminuted fracture of the distal fibula, moderately displaced fracture of the medial malleolus and findings suspicious for nondisplaced fracture of the fibular head. Medial displacement of distal tibia in relation to the talus. Plan: -Closed reduction without anesthesia completed by Dr. Richter -Post reduction x-rays obtained at bedside and reviewed -Posterior splint and sugar-tong splint applied using cast padding, splint, and YIN -No swelling noted above or below splint -Toes pink with immediate cap refill noted -Patient instructed to report any pain that is not relieved with medication, swelling of digits, or toes becoming blueish or purple -Keep extremities elevated -Patient to go to surgery tomorrow with Dr. Richter and Dr. Khan for bilateral ORIF ankle fractures -NPO after midnight -Hold Heparin restart on 07/31/18 Qualifiers: Encounter type: initial encounter Fracture morphology: unspecified fracture morphology Qualified Code(s): S82.831A - Other fracture of upper and lower end of right fibula, initial encounter for closed fracture History of Present Illness HPI: Ms. Navarrete is a 72 year old female who presents to the hospital after falling at home yesterday and fracturing bilateral ankles. Patient is somnolent, oriented to name, place, and year. Daughters at bedside report history of confusion over the last few years, but deny diagnosis of dementia. Patient reports she remembers falling but is a poor historian to the events leading up to her hospitalization. Patient's daughter reports patient went to stand and her ankles were turned in an awkward position and she fell in the bathroom. It is unknown if the patient had a syncopal episode, when asked the daughter denied patient losing consciousness. Patient's past medical history includes CHF, COPD, HTN, and hyperlipidemia, this was obtained from patient's daughters and medical records. Podiatry was consulted due to bilateral ankle fractures. Patient reports she is a 1 ppd smoker, denies any alcohol or illicit drug use. Bilateral posterior splints intact, no strike through noted. No swelling noted above or below splint. Past Med Surg Social Fam HX - Past Medical History Medical history: CHF, COPD, hyperlipidemia, hypertension Psychiatric history: no psych history - Past Surgical History Surgical History: hysterectomy - Social History Smoking Status: Current every day smoker Smokeless Tobacco Status: No Alcohol use: none Drug use: none - Family History Daughter Hx Family Respiratory Disorders: Yes (COPD/ EMPHYSEMA) Father Hx Family Cardiac Disorders: Yes ([place]) Hx Family Endocrine Disorder: Yes (DM) Medications and Allergies Escitalopram 20 mg PO DAILY 07/28/18 [History] Aspirin 81 mg PO DAILY 07/29/18 [History] Colace 100 mg PO DAILY 07/29/18 [History] Ibuprofen 800 mg PO TID PRN 07/29/18 [History] Lansoprazole 30 mg PO DAILY 07/29/18 [History] Lisinopril 10 mg PO DAILY 07/29/18 [History] Mucinex Dm ER 600-30 mg Tablet 1,200 mg PO BID 07/29/18 [History] Nitroglycerin 0.4 mg PO Q5MIN 07/29/18 [History] Potassium Chloride 20 mEq/100 mL 20 meq PO DAILY 07/29/18 [History] RX: Furosemide [Lasix] 40 mg PO DAILY 07/29/18 [History] RX: Montelukast [Singulair] 10 mg PO DAILY 07/29/18 [History] RX: Simethicone [Gas-X] 80 mg PO BID PRN 07/29/18 [History] Allergy/AdvReac Type Severity Reaction Status Date / Time No Known Allergies Allergy Verified 07/28/18 17:51 All Systems Reviewed: The remainder of the systems were reviewed and are negative Review of systems: As per HPI. Patient is somnolent, she does arouse with verbal stimulation but drifts back to sleep quickly. She reports pain all over. Physical Exam - Constitutional Vitals: Temp Pulse Resp BP Pulse Ox 97.1 F L 88 16 116/73 91 07/29/18 11:09 07/29/18 11:09 07/29/18 11:09 07/29/18 11:09 07/29/18 11:09 Exam: Constitutional: Patient is somnolent, arouses to verbal stimulation but drifts back to sleep quickly, oriented to name, place, and year, no acute distress noted, well nourished Vascular: 1/4 DP/PT pulses, cap refill less than 3 seconds, no pain with calf squeeze bilaterally, 1/4 edema noted, skin warm from toes to tibia Necrological: Sensation intact, proprioception intact Dermatological: Obvious deformity noted to bilateral ankles, no fracture blisters noted, tenting noted right ankle, bilateral ankles with ecchymosis n oted Musculoskeletal: 3/5 muscle strength noted bilaterally, movement of all toes noted Results - Labs Result Diagrams: 07/29/18 01:43 07/29/18 01:43 Labs: Abnormal lab results RBC 5.02 M/mcL (3.82-4.97) H 07/29/18 01:43 Hct 48.8 % (35.3-44.9) H 07/29/18 01:43 MCHC 29.9 g/dL (31.6-35.5) L 07/29/18 01:43 Plt Count 131 K/mcL (140-400) L 07/29/18 01:43 Nucleated RBCs/100 WBC 1.5 /100 WBC (0) H 07/29/18 01:43 PT 15.8 Seconds (9.4-12.1) H 07/29/18 01:43 ABG pCO2 78 mmHg (35-45) H* 07/29/18 06:43 ABG pO2 77 mmHg (85-104) L 07/29/18 06:43 ABG HCO3 41 mEq/L (21-27) H 07/29/18 06:43 ABG Total CO2 44 mEq/L (20-26) H 07/29/18 06:43 ABG O2 Saturation 93 % (95-98) L 07/29/18 06:43 ABG Base Excess 11 mEq/L (-2 to 3) H 07/29/18 06:43 Carbon Dioxide 37 mEq/L (23-29) H 07/29/18 01:43 BUN 32 mg/dL (8-23) H 07/29/18 01:43 BUN/Creatinine Ratio 35 (6-26) H 07/29/18 01:43 Glucose 115 mg/dL (70-105) H 07/29/18 01:43 Calculated Osmolality 302 (280-300) H 07/29/18 01:43 Calcium 8.3 mg/dL (8.6-10.3) L 07/29/18 01:43 Magnesium 1.5 mg/dL (1.6-2.6) L 07/29/18 01:43 GGT 26 Units/L (1-24) H 07/29/18 01:43 AST 434 Units/L (13-39) H 07/29/18 01:43 ALT 856 Units/L (7-52) H 07/29/18 01:43 Ammonia 59 mcmol/L (16-53) H 07/28/18 17:00 Serum Total Protein 5.7 g/dL (6.4-8.9) L 07/29/18 01:43 Albumin 3.2 g/dL (3.5-5.7) L 07/29/18 01:43 Salicylates < 2.5 mg/dL (15.0-30.0) L 07/29/18 01:43 Acetaminophen < 10 mcg/mL (10-20) L 07/29/18 01:43 H & H 07/28/18 07/29/18 Range/Units 13:52 01:43 Hgb 15.4 14.6 (11.5-15.4) g/dL Hct 50.7 H 48.8 H (35.3-44.9) % All other labs normal. Consult Discharge Plan - Plan Referrals: Radha Garza MD [Primary Care Provider] -
--- NOTE | 2018-07-29 14:15 | Event Note ---
Date of Encounter: 07/29/18 Time of Encounter: 14:10 Pre-op medical clearance Revised cardiac risk ndex about 4, moderate risk. Pt also suspected for pneumonia and currently treated with IV abx. She has chronic COPD and ABG showed PCO2 atout 80, which appears to her baseline. AST/ALT was elevated but she does not seem having acute hepatitis or acute hepatic failure. We will continue monitoring her Lab and correct electrolytes. Keep BiPAP on, check ABG if needed. NPO, possible surgery this afternoon or tomorrow morning per podiatry.
[2018-07-29] MEDS ORDERED: *HR* HYDROmorphone (PF) 1 MG/ML SYRINGE IVP ONE (16:36)
--- NOTE | 2018-07-29 16:39 | Electrocardiograph Report ---
[place] [id number] Test Date: 2018-07-29 Pat Name: Judi Navarrete Department: 114 Room: [facility] Gender: F Lunch Counter Manager: SYLWIA : 1945 Requested By: Alvin Gabriel Order Number: [id number] Reading MD: Aria Saxena Measurements Intervals [place] Rate: 73 P: 61 CA: 157 QRS: 11 QRSD: 93 T: 113 QT: 399 QTc: 425 Interpretive Statements SINUS RHYTHM NONSPECIFIC ST ABNORMALITIES Electronically Signed On 07-29-2018 16:38:26 EDT by Aria Saxena
--- NOTE | 2018-07-29 17:29 | Event Note ---
Date of Encounter: 07/29/18 Time of Encounter: 17:25 Pt had bedside close reduction. Pt was found desating to low 80s after the procedure for brief of period of time ( less than 3 mins). BiPAP re-applied with FiO2 60%. pt SpO2 back to mid 90s. ABG ordered. Pt will be transferred to .
[2018-07-29 17:58] LABS: ABG Base Excess 10 mEq/L (-2 to 3); ABG HCO3 41 mEq/L (21-27); ABG Oxygen Saturation 95 % (95-98); ABG PCO2 89 mmHg (35-45); ABG PH 7.27 pH Units (7.32-7.45); ABG PO2 91 mmHg (85-104); ABG TCO2 44 mEq/L (20-26)
[2018-07-29] MEDS ORDERED: Azithromycin 500 MG in D5% in Water 250 ML IVPB SCH (22:00)
[2018-07-30] MEDS: Ipratropium/Albuterol Neb 3 ML IH SCH ×4 (03:32→21:42)
[2018-07-30] MEDS: Ringers Solution, Lactated 1,000 ML IVC SCH ×2 (05:24→22:34)
[2018-07-30] MEDS: methylPREDNISolone 125 MG/2 ML VIAL IVP SCH ×2 (05:25→17:16)
--- NOTE | 2018-07-30 06:18 | Procedure Note ---
Date of procedure: 07/29/18 Pre-op diagnosis: bilateral displaced bimalleolar ankle fracture Post-op diagnosis: same Procedure: 1. Left closed reduction bimalleolar ankle fracture 2. Right closed reduction bimalleolar ankle fracture No sedation was used. There was noted to be displaced bilateral bimalleolar ankle fracture on Xrays taken on admission to [facility] with tenting of skin at medial ankle. No local anesthetic was used. Bilateral ankle fractures were reduced and improved alignment was noted on bilateral Xrays taken after the fractures were reduced and splinted. She was on NC during the procedures but she appeared stable at the time of reduction. Anesthesia: none Surgeon: Jason Richter Was there an medical laboratory assistant present: Yes [employer] Sales Representative: Lashanda Cam Estimated blood loss (cc): 0 Specimen: None Condition: stable Disposition: floor
[2018-07-30] MEDS: *HR* HYDROcodone/Acet 5/325 mg TABLET PO PRN ×3 (07:52→23:50)
[2018-07-30] MEDS: cefTRIAXone 2,000 MG in Water for inj. (sterile) 20 ML 20 ML IVP SCH (07:52)
[2018-07-30] MEDS: GuaiFENesin/Dextromethorphan TABLET PO SCH ×2 (07:53→20:29)
[2018-07-30 09:30] LABS: Hematocrit 43.6 % (35.3-44.9); Hemoglobin 13.3 g/dL (11.5-15.4); Immature Granulocytes % 0.2 % (0-4); Lymphocytes # 0.6 K/mcL (0.6-4.6); Lymphocytes % 11.2 %; Mean Corpuscular HGB Conc 30.5 g/dL (31.6-35.5); Mean Corpuscular Hemoglobin 28.8 pg (28.0-33.3); Mean Corpuscular Volume 94.4 fL (83.0-100.0); Mean Platelet Volume 10.1 fL (9.4-12.4); Monocytes # 0.5 K/mcL (0.0-1.3); Monocytes % 9.8 %; Nucleated Red Blood Cells 0.4 /100 WBC (0); Platelet Count 162 K/mcL (140-400); Red Blood Count 4.62 M/mcL (3.82-4.97); Segmented Neutrophils % 78.8 %
[2018-07-30 10:08] LABS: Alanine Aminotransferase 551 Units/L (7-52); Albumin/Globulin Ratio 1.3 (1.1-2.2); Alkaline Phosphatase 79 Units/L (34-104); Aspartate Amino Transferase 142 Units/L (13-39); BUN/Creatinine Ratio 32 (6-26); Bilirubin,Total 0.4 mg/dL (0.3-1.0); Blood Urea Nitrogen 18 mg/dL (8-23); Calcium 8.6 mg/dL (8.6-10.3); Carbon Dioxide 37 mEq/L (23-29); Chloride 100 mEq/L (98-107); Globulin 2.3 g/dL (2.4-3.5); Glucose 127 mg/dL (70-105); Magnesium 1.9 mg/dL (1.6-2.6); Osmolality,Calculated 295 (280-300); Sodium 141 mEq/L (136-145); Total Protein 5.3 g/dL (6.4-8.9); eGFR For Non-African Americans > 60 (> 60)
[2018-07-30] MEDS ORDERED: *HR* FentaNYL (PF) 100 MCG/2 ML VIAL ONE (10:17)
[2018-07-30] MEDS ORDERED: *HR* Midazolam HCl 2 MG/2 ML VIAL ONE ×2 (10:18→10:28)
[2018-07-30] MEDS ORDERED: ROPIVACAINE HCL/PF 0.5% 30 ML VIAL ONE (11:05)
[2018-07-30] MEDS ORDERED: ROPIVACAINE/PF/NS SYRINGE INTRAART ONE (11:05)
[2018-07-30] MEDS ORDERED: *HR* EPINEPHrine 1 MG/ML AMPUL ONE (11:08)
--- NOTE | 2018-07-30 11:10 | Podiatry Progress Note ---
Date of Encounter: 07/30/18 Time of Encounter: 10:30 Subjective Interval history: 72 year old female with bilateral unstable ankle fractures proceeding with surgery today. Nature of the procedure, risks versus benefits potential complications consequences of surgery including but not limited to infection bleeding swelling numbness tingling heart attack blood clot delayed or nonunion of bone pulmonary embolism loss of leg wound healing problems scar loss of functionality lack of procedure to produce desired outcome and potential need for hardware removal discussed with the patient and power of civil attorney at length. They understood that she will have arthritis due to the nature of her injuries and she will need to remain nonweightbearing for at least 6-8 weeks or longer. All their questions were answered and the informed consent was signed. Patient optimized by medical service being brought to the operating room for ORIF of bilateral ankle fractures. Objective - Vital Signs Vital Signs: Vital Signs Temp Pulse Resp BP Pulse Ox 07/30/18 11:00 18 96 07/30/18 07:21 98.5 F 68 24 119/81 94 07/30/18 03:45 65 07/30/18 03:32 14 129/70 96 07/30/18 03:09 98.6 F 59 14 124/70 96 07/30/18 00:39 65 07/29/18 23:56 98.8 F 65 14 109/59 99 07/29/18 21:47 17 100 07/29/18 20:16 79 07/29/18 18:41 85 15 129/74 95 07/29/18 15:35 16 112/74 91 07/29/18 15:23 98.7 F 85 16 112/74 92 07/29/18 11:09 97.1 F L 88 16 116/73 91 Intake and Output 07/29/18 07/30/18 07/30/18 23:59 07:59 15:59 Intake Total 1000 / 1000 1000 / 1000 Output Total 750 / 750 500 / 500 Balance 250 / 250 500 / 500 Intake: IV Fluids 1000 / 1000 1000 / 1000 Lactated Ringers 1,000 ML @ 100 1000 / 1000 1000 / 1000 mls/hr IVC .Q10H LIEN Rx#: [id number] Output: Catheter 750 / 750 500 / 500 - Lab Result Diagrams: 07/30/18 08:49 07/30/18 08:49 Labs: Abnormal lab results MCHC 30.5 g/dL (31.6-35.5) L 07/30/18 08:49 Nucleated RBCs/100 WBC 0.4 /100 WBC (0) H 07/30/18 08:49 PT 15.8 Seconds (9.4-12.1) H 07/29/18 01:43 ABG pH 7.27 pH Units (7.32-7.45) L 07/29/18 17:55 ABG pCO2 89 mmHg (35-45) H* 07/29/18 17:55 ABG HCO3 41 mEq/L (21-27) H 07/29/18 17:55 ABG Total CO2 44 mEq/L (20-26) H 07/29/18 17:55 ABG Base Excess 10 mEq/L (-2 to 3) H 07/29/18 17:55 Carbon Dioxide 37 mEq/L (23-29) H 07/30/18 08:49 Creatinine 0.57 mg/dL (0.60-1.20) L 07/30/18 08:49 BUN/Creatinine Ratio 32 (6-26) H 07/30/18 08:49 Glucose 127 mg/dL (70-105) H 07/30/18 08:49 GGT 26 Units/L (1-24) H 07/29/18 01:43 AST 142 Units/L (13-39) H 07/30/18 08:49 ALT 551 Units/L (7-52) H 07/30/18 08:49 Ammonia 59 mcmol/L (16-53) H 07/28/18 17:00 Serum Total Protein 5.3 g/dL (6.4-8.9) L 07/30/18 08:49 Albumin 3.0 g/dL (3.5-5.7) L 07/30/18 08:49 Globulin 2.3 g/dL (2.4-3.5) L 07/30/18 08:49 Salicylates < 2.5 mg/dL (15.0-30.0) L 07/29/18 01:43 Acetaminophen < 10 mcg/mL (10-20) L 07/29/18 01:43 Microbiology, Last 48 Hours 07/29/18 01:43 Blood Culture - Preliminary Peripheral Venipuncture Culture is incubating and being continuously monitored for growth. Final report to follow. 07/29/18 01:43 Blood Culture - Preliminary Peripheral Venipuncture Culture is incubating and being continuously monitored for growth. Final report to follow. Consult Discharge Plan - Plan Referrals: Radha Garza MD [Primary Care Provider] -
[2018-07-30] MEDS ORDERED: KETAMINE HCL 50 MG/ML SYRINGE IV ONE (11:13)
--- NOTE | 2018-07-30 11:15 | Anesthesia Evaluation PreOp ---
Date of Encounter: 07/30/18 Time of Encounter: 11:15 - Past History Planned Operation: Bilateral ORIF Ankle Cardiac History: CHF, HTN, Hyperlipidemia Pulmonary History: COPD COMPENSATOR History: Other (Dementia) Other Medical History: Denies Any Significant HX Anesthesia History: No Prior Anesthetic Complications : No Alcohol Use: none Drug use: none Medications and Allergies Aspirin Enteric Coated [Aspirin EC] 81 mg PO DAILY 07/29/18 [History] Aspirin/Acetaminophen/Caffeine [Headache 250-250-65 mg Tablet] 1 tab PO QID PRN 07/29/18 [History] Atorvastatin [Lipitor] 20 mg PO HS 07/29/18 [History] Docusate [Colace] 100 mg PO QPM PRN 07/29/18 [History] Escitalopram [Lexapro] 20 mg PO DAILY 07/29/18 [History] Furosemide [Lasix] 40 mg PO DAILY 07/29/18 [History] Guaifenesin [Mucinex] 1,200 mg PO BID PRN 07/29/18 [History] HYDROcodone/Acet 5/325 mg [Hartman 5-325 mg] 1 tab PO TID PRN 07/29/18 [History] Ibuprofen [Ibu] 800 mg PO TID PRN 07/29/18 [History] Lansoprazole [Prevacid] 30 mg PO DAILY 07/29/18 [History] Lisinopril [Zestril] 10 mg PO DAILY 07/29/18 [History] Montelukast [Singulair] 10 mg PO DAILY 07/29/18 [History] Nitroglycerin [Nitrostat] 0.4 mg SL AD PRN 07/29/18 [History] Potassium Chloride [K-Tab ER] 20 meq PO DAILY 07/29/18 [History] Simethicone [Gas-X] 80 mg PO PER PKG DI 07/29/18 [History] Allergy/AdvReac Type Severity Reaction Status Date / Time No Known Allergies Allergy Verified 07/28/18 17:51 - Meds/Allergy Pre-op Review Medications Reviewed: Yes Allergies Reviewed: Yes Beta Blockers on Current Med List: No Anesthesia Results - Labs 07/30/18 08:49 07/30/18 08:49 Laboratory Tests 07/29/18 07/29/18 07/30/18 01:43 17:55 08:49 Hgb 13.3 Hct 43.6 Plt Count 162 PT 15.8 H INR 1.4 APTT 27.4 ABG pH 7.27 L ABG pCO2 89 H* ABG pO2 91 ABG HCO3 41 H ABG Total CO2 44 H ABG O2 Saturation 95 ABG Base Excess 10 H Sodium Potassium BUN Creatinine 07/30/18 08:49 Hgb Hct Plt Count PT INR APTT ABG pH ABG pCO2 ABG pO2 ABG HCO3 ABG Total CO2 ABG O2 Saturation ABG Base Excess Sodium 141 Potassium 4.0 BUN 18 Creatinine 0.57 L - Imaging EKG: report reviewed (SR) Additional studies: ECHO EF 60%, mild pulm htn, no Anesthesia Exam O2 Sat O2 Sat by Pulse Oximetry 96 O2 Sat by Pulse Oximetry 94 O2 Sat by Pulse Oximetry 96 O2 Sat by Pulse Oximetry 96 O2 Sat by Pulse Oximetry 99 O2 Sat by Pulse Oximetry 100 O2 Sat by Pulse Oximetry 95 O2 Sat by Pulse Oximetry 91 O2 Sat by Pulse Oximetry 92 Vital Signs Temp Pulse Resp BP Pulse Ox 97.8 F 89 10 136/94 98 07/28/18 13:47 07/28/18 13:47 07/28/18 13:47 07/28/18 13:47 07/28/18 13:47 Height: 5'2 Weight: 197 lbs NPO (# of Hours): MN Pain Scale: 0 - HEENT Pupil (Motor): Pupils equal, EOMI Mallampati: III Oral Opening: Less than or equal to 3 - COMPENSATOR LOC: Confused COMPENSATOR Motor: Normal RUE, Normal LUE, Normal RLE, Normal LLE, Normal Face COMPENSATOR Sensory: Normal: RUE, LUE, RLE, LLE, Face - Cardiac Rhythm: Regular Murmur: None JVD: No Carotid Bruit: No - Pulmonary Breath Sounds: bilateral Clear Respiratory Effort: Symmetrical Anesthesia Assess/Plan ASA Score: 3 (HTN Dementia) Level of consciousness: Cooperative, Oriented Anesthetic Plan: Regional Nerve Block, Spinal Regional Nerve Block Plan: Adductor canal, Popliteal Autologous Blood: No Monitoring Plan: Standard Monitors Recovery Plan: PACU (Discussed SAB, nerve block, possible GA with POA, agrees to proceed)
[2018-07-30] MEDS ORDERED: Ondansetron 4 MG/2 ML VIAL IVP ONE ×2 (11:21→15:12)
--- NOTE | 2018-07-30 11:23 | Operative Note ---
Date of procedure: 07/30/18 Pre-op diagnosis: right bimalleolar ankle ORIF Post-op diagnosis: same Procedure: ORIF right bimalleolar ankle fracture ORIF syndesmosis Implants: [id number] locking plate with screws, co-lag 3.0mm partially threaded cannulated screws Complications: none Anesthesia: GETA Local Anesthetics: 0.25% Sensorcaine HCL with Epinephrine 1:200,000 SubQ (cc) Surgeon: Luis Khan Was there an cement tester assistant present: No Estimated blood loss (cc): 5 Tourniquet Time (Minutes): 47 Specimen: none Condition: stable Disposition: PACU Procedure in Detail: Indications: 72-year-old female with unstable bilateral ankle fractures being brought to the operating room for ORIF and I perform the ORIF of the right bimalleolar ankle fracture. Preoperatively, the nature of the procedure, risks first benefits potential complications consequences of surgery and her condition discussed at length. No guarantees were made as to the outcome of any procedure they understood that she is at risk for developing complications during or after the procedure and that she will have arthritis of her ankles. We discussed the typical course of recovery she will be nonweightbearing approximately 6-8 weeks or longer following the procedure. All of their questions had been answered and the informed consent was signed by the power of shearing machine feeder patient was also in agreement with proceeding with surgical intervention. The right lower extremity was scrubbed prepped and draped in the usual sterile fashion. The thigh tourniquet was inflated to 300 mmHg and the following procedure began. ORIF of right bimalleolar ankle fracture. Attention was directed to the lateral aspect of the patient's right ankle were #15 blade was used to make a skin incision approximately 7 cm in length. Skin incision was deepened through blunt dissection all traversing veins were divided and ligated using the Bovie or Vicryl ties as deemed appropriate. Care was taken to avoid neurovascular tendon structures. The periosteal layer was incised and freed from the fibula exposing the fracture zone of the lateral malleolus which was obliquely oriented. Hematoma was evacuated from the fracture zone. The ankle was held in a reduced position with the talus under the tibia and well aligned and the ankle mortise. C-arm was utilized to confirm reduction of the talus and the ankle mortise and that the fibula was out to length. Reduction clamps were used to stabilize the fracture zone which was comminuted. It was also temporarily pinned. An [id number] tubular plate with 3.5 mm locking and nonlocking screws to the lateral aspect of the fibula bridging the fracture zone. The fibula was out to length. The site was flushed with saline irrigation. Stability of the fracture zone was assessed and the fracture zone had good apposition and the ankle was noted to be in good position and alignment on the C-arm. Attention was then directed medially where a #15 blade was used to make a skin incision approximately 3 cm in length over the medial malleolus. Skin incision was deepened through blunt dissection care was taken to avoid neurovascular tendinous structures. Hematoma was evacuated from the fracture zone and periosteum removed from the fracture zone. The medial malleolar fracture fragment was then reduced with a reduction clamp and pinned temporarily. C-arm was utilized to confirm position and alignment of the k-wires traversing the fracture zone. Fracture was noted to be reduced an [id number] 3.0mm partially threaded cannulated co-lag screw was thrown across the fracture zone. No increase in medial clear space was noted and good tib-fib overlap was present. Reduction of the fracture zone was noted. Attention was then directed laterally where the cotton hook test was performed and instability felt to be present at the syndesmosis. A 3.5mm cortical screw was thrown through the plate and across the syndesmosis stabilizing the syndesmosis. C-arm was utilized to confirm position and alignment of the fracture zones. There was no increased and medial clear space there was good tib-fib overlap and the talus was aligned in the ankle mortise and the fibula was out to length. Periosteal layers were closed with 2-0 Vicryl subcutaneous tissues were closed with 2-0 Vicryl and the skin was reapproximated with gisela laterally. Postoperative bandaging included Xeroform, 4 x 4 gauze, Kerlix and an adequately padded posterior splint. The patient tolerated the anesthesia and the procedure well and was escorted to the recovery room with vital signs stable and vascular status intact to the left foot noted by instant capillary refill time to all digits of the right foot. Elevation. Strict instructions given for non- weightbearing to the right lower extremity. Return to the floor where she will continue antibiotics.
[2018-07-30] MEDS ORDERED: Propofol 500 MG/50 ML INFUS..BTL ONE (12:04)
[2018-07-30] MEDS ORDERED: Lidocaine -MPF 2% 2 ML VIAL ONE (12:10)
--- NOTE | 2018-07-30 12:48 | Event Note ---
Date of Encounter: 07/30/18 Time of Encounter: 11:15 Attempted to see patient, but was off the floor for surgery. AST and ALT elevated but are improving. Continue to monitor LFTs daily. Hepatitis profile negative. CT A/P with fatty liver. Full consult tomorrow.
--- NOTE | 2018-07-30 13:09 | Anesthesia Procedures ---
Addendum entered and electronically signed by Rod Balderrama CRNA 07/30/18 13:23: duplicate note for spinal and nerve block, note placed in error after notes placed by Brian Sampson CRNA Original Note: Date of Encounter: 07/30/18 Time of Encounter: 11:29 Procedures: Anesthesia - Epidural/Spinal Patient ID/Chart reviewed: Yes Patient examined: Yes Consent Obtained: Yes Supplemental Oxygen: Mask Supplemental Oxygen Rate (L/min): 15 Sedation: Versed (mg): 1 Site Prep: Aseptic Technique, Sterile prep and drape, 0.5% Chlorhexidine/Alcohol Patient position: left lateral decubitus Local Anesthetic: Lidocaine 1% Amount of Local Anesthetic used: 3 Interspace Used: L2-L3 Blood: No CSF: Yes (clear) Paresthesia: No Spinal Needle Gauge: 25 Spinal Dose: 2.2 ml marcaine 5% PF (pencan needle) Procedure: 20mg ketamine given for sedation - Nerve Block Procedure Date: 07/30/18 Time: 11:29 Allergies/Adv Reactions: No Known Allergies Allergy (Verified 07/28/18 17:51) Pre-op Diagnosis: bilateral ankle fractures Surgical Procedure: ORIF bilateral ankles Checklist: Correct Patient Identifier, Correct procedure, History checked Blood Thinner: No Monitor Applied: EKG, BP, Pulse Oximetry Supplemental Oxygen via Nasal Cannula (L/min): 15 (simple mask) Indication: Post Op Analgesia Pre-op Neuro Deficits: No Block Type: Femoral (adductor canal), Popliteal Catheter placed: No Sterile Technique: Yes Ultrasound used: Yes Anatomy identified: Yes Visual spread of Local: Yes Neuro Stimulation: No Blood on Needle Aspiration: No Smooth Injection of Local: Yes Pain with Injection of Local: No Prep: Chlorhexadine Needle: 21 x 100 mm Stimuplex Local: Ropivacaine (0.5% ) Volume (cc): see comments Number of Attempts: 1 Complications: None/effective block Vitals: Vital Signs/O2 Sat, Most Current Temp Pulse Resp BP Pulse Ox 98.5 F 82 18 116/60 92 07/30/18 07:21 07/30/18 11:55 07/30/18 11:55 07/30/18 11:55 07/30/18 11:55 Comments: Bilateral adductor canal blocks and bilateral popliteal blocks performed R adductor canal block 15ml 0.25% ropivacaine L adductor canal block 15ml 0.25% ropivacaine R popliteal block 20ml 0.5% ropivacaine 4mg decadron L popliteal block 20ml o.5% ropivacaine 4mg decadron Performed per Ninoska Medina w/Federico Sampson AUTOMATION AND CONTROLS MANAGER supervising
--- NOTE | 2018-07-30 13:15 | Anesthesia Procedures ---
Date of Encounter: 07/30/18 Time of Encounter: 11:35 Procedures: Anesthesia - Epidural/Spinal Patient ID/Chart reviewed: Yes Patient examined: Yes OB Eval: Contractions: Non-stressed pattern Consent Obtained: Yes Supplemental Oxygen: None/Room Air Supplemental Oxygen Rate (L/min): 6 Sedation: Versed (mg): 1 Site Prep: Aseptic Technique Patient position: left lateral decubitus Local Anesthetic: Lidocaine 1% Amount of Local Anesthetic used: 3 Interspace Used: L3-L4 Spinal Needle Gauge: 25 Procedure: one attempt at L3-4 with strict asepsis. no heme, no parasthesias. 2.2ml 0.5% ropivicaine plain
--- NOTE | 2018-07-30 13:19 | Anesthesia Procedures ---
Date of Encounter: 07/30/18 Time of Encounter: 11:45 Procedures: Anesthesia - Nerve Block Procedure Date: 07/30/18 Time: 11:45 Allergies/Adv Reactions: No Known Allergies Allergy (Verified 07/28/18 17:51) Checklist: Correct Patient Identifier, Correct procedure, History checked Blood Thinner: No Monitor Applied: BP, Pulse Oximetry Supplemental Oxygen via Nasal Cannula (L/min): 6 Indication: Post Op Analgesia Pre-op Neuro Deficits: No Block Type: Popliteal (0.5% ropivicaine 30cc), Other (adductor 0.25% ropiviaine 30cc) Sterile Technique: Yes Ultrasound used: Yes Anatomy identified: Yes Visual spread of Local: Yes Blood on Needle Aspiration: No Smooth Injection of Local: Yes Pain with Injection of Local: No Prep: Chlorhexadine Needle: 21 x 100 mm Stimuplex Local: Ropivacaine Volume (cc): 60 Number of Attempts: 1 Complications: None/effective block
--- NOTE | 2018-07-30 13:28 | Internal Med Progress Note ---
Hospitalist Progress Note - Encounter Date of Encounter: 07/30/18 Time of Encounter: 11:25 - Subjective Interval History: Pt currently getting breathing treatment. Daughters at bedside. Pt denies fever, chills, N/V or diarrhea. She denies chest pain or abdominal pain. Daughters states pt is a current smoker and she appointments to go for sleep study out pt but did not go to her appointments. - Exam Vitals: Temp Pulse Resp BP Pulse Ox 98.5 F 82 18 116/60 92 07/30/18 07:21 07/30/18 11:55 07/30/18 11:55 07/30/18 11:55 07/30/18 11:55 Exam: General appearance: Present: A&O not in acute distress. Absent: answers questions appropriately Exam: Head exam: Present: normal inspection Eye exam: Present: EOMI, PERRL. Absent: scleral icterus Pupils: Present: normal accommodation ENT exam: Present: mucous membranes dry, normal oropharynx Neck exam general surgery: Present: full ROM, supple, trachea midline. Absent: lymphadenopathy, tenderness, nuchal rigidity, thyromegaly Respiratory exam: Present: prolonged expiratory phase, rhonchi, wheezes. Absent: chest wall tenderness, rales Cardiovascular exam: Present: distant heart sounds, +S1, +S2. Absent: diastolic murmur, systolic murmur GI/Abdominal exam: Present: normal bowel sounds, soft. Absent: guarding, hepatomegaly, mass, rebound, splenomegaly, tenderness Extremities exam: Present: tenderness, warm, radial pulses palpable and symmetrical. Absent: calf tenderness, pedal edema Both legs/ankles splinted and wrapped per ER Back exam: Absent: CVA tenderness (L), CVA tenderness (R) Neurological exam: Present: altered, no focal deficits Skin exam: Present: dry, intact, warm - Assessment and Plan (1) Acute respiratory failure with hypoxia and hypercarbia Current Visit: Yes Status: Acute Assessment and Plan: 1. BiPAP ordered and repeat ABG showing CO2 retention. 2. Continue Duonebs and PRN albuterol nebs. On scheduled steroids. 3. Concern for obesity hypoventilation syndrome and or sleep apnea. 4. Close monitoring on telemetry and pulse ox. 5. Will consider pulmonology consult post op. 6. Pt having spinal anesthesia and not being intubated. Discussed with ANGELITA Velasco and recommending pt be placed on BiPAP sooner than later. Rod will acll respiratory to have BiPAP set up for pt. Pt high risk for needing intubation. (2) Pneumonia Current Visit: Yes Status: Suspected Assessment and Plan: 1. Blood cultures incubating and will send respiratory infection panel. 2. On IV Zithromax and Rocephin. Continue on respiratory treatments as above. (3) Bimalleolar fracture of left ankle Current Visit: Yes Status: Acute Assessment and Plan: 1. Pain control. 2. Consult to Podiatry. Planing for surgery today (4) Transaminitis Current Visit: Yes Status: Acute Assessment and Plan: 1. Will trend LFT's. Hepatitis panel non-reactive. 2. ASA and salicylate levels obtained and low. 3. Liver U/S notes mild liver cirrhosis. 4. Cirrhosis possibly due to fatty liver. (5) CHF (congestive heart failure) Current Visit: Yes Status: Chronic Assessment and Plan: 1. No acute CHF now. 2. Mild pulmonary HTN ECHO EV/EV echocardiogram Impressions: LVEF 60%. Mild left ventricular diastolic dysfunction. Normal right ventricular structure and function. Mild tricuspid regurgitation. Mild pulmonary hypertension. There is a trivial pericardial effusion present. There is no echocardiographic evidence of tamponade. DVT Prophylaxis: Heparin - Summary of Assessment and Plan Summary of Assessment and Plan: History of present illness: Dr. Gabriel Ms. Navarrete is a 72 year old female who was transferred to our ER from [facility]. She reportedly fell tonight on to the bathroom floor and broke both ankles (tib/fib). ER contacted Dr. Escalona for consultation, but he deferred to Dr. Stewart from podiatry. Patient was then admitted to hospitalist service with a podiatry/orthopedic consultation. Upon my assessment of the patient, patient is somnolent, confused, and a very poor historian. I summoned her daughter to the bedside to provide a history. Caridad hidalgo reportedly actually had a syncopal spell today at home. Her daughter found her on the bathroom floor with both ankles projecting outward and patient landed on her knees. There was no known reported head trauma. However, she had multiple scans in the ER which were negative except for the ankle fractures. Routine labs revealed significant transaminitis on CT of the chest concerning for pneumonia. According to daughter, patient has severe COPD requiring oxygen. Patient was quite somnolent and difficult to arouse. I ordered a stat arterial blood gas, which confirmed respiratory acidosis. I therefore placed her on BiPAP, and we will repeat arterial blood gas in the morning. Regarding her transaminitis, patient does not drink alcohol. She has been using Tylenol for her joint aches and pains. I ordered a stat acetaminophen and salicylate level, both of which were undetectable. Patient and daughter both deny any trauma or injury to her liver or abdomen with today's fall. - Time Spent with Patient Total time spent is greater than 50% in coordination of care (as documented) at patient's floor/unit and/or counseling patient: less than 15 minutes Plan of Care Discussed with: patient Internal Medicine: Result - Labs CBC & Chem 7: 07/30/18 08:49 07/30/18 08:49 Labs: Short CBC 07/30/18 Range/Units 08:49 WBC 5.1 (4.3-11.1) K/mcL Hgb 13.3 (11.5-15.4) g/dL Hct 43.6 (35.3-44.9) % Plt Count 162 (140-400) K/mcL Neutrophils # 4.0 (1.6-8.9) K/mcL BMP 07/30/18 08:49 Sodium 141 Potassium 4.0 Chloride 100 Carbon Dioxide 37 H BUN 18 Creatinine 0.57 L Glucose 127 H Calcium 8.6 Liver Function 07/30/18 Range/Units 08:49 Total Bilirubin 0.4 (0.3-1.0) mg/dL AST 142 H (13-39) Units/L ALT 551 H (7-52) Units/L Alkaline Phosphatase 79 (34-104) Units/L Albumin 3.0 L (3.5-5.7) g/dL - ABG Interpretation ABG results: ABG ABG pH 7.27 pH Units (7.32-7.45) L 07/29/18 17:55 ABG pCO2 89 mmHg (35-45) H* 07/29/18 17:55 ABG pO2 91 mmHg (85-104) 07/29/18 17:55 ABG O2 Saturation 95 % (95-98) 07/29/18 17:55 PT/INR, D-dimer PT 15.8 Seconds (9.4-12.1) H 07/29/18 01:43 - Impressions Impressions Liver Ultrasound 07/29/18 11:00 IMPRESSION: 1. Hyperechoic inhomogeneous liver but no focal abnormality. 2. Status post cholecystectomy. Normal biliary system. D/ / 07/29/2018 12:52:31 Anusha Lomax MD / [email or web address] Interpreting Provider: Anusha Lomax MD Ankle X-Ray 07/29/18 16:37 IMPRESSION: Medial and lateral malleolar fractures with overlying soft tissue swelling. D/ / Roopa Blanca Cha, MD / Roopa Blanca Cha, MD Interpreting Provider: Roopa Blanca Cha, MD Ankle X-Ray 07/29/18 16:37 IMPRESSION: No significant change in alignment of the fibular and tibial fractures. D/ / Ab Mayen MD / Ab Mayen MD Interpreting Provider: Ab Mayen MD Consult Discharge Plan - Plan Referrals: Radha Garza MD [Primary Care Provider] - Jamie Gamboa CNP [Advanced Practice Nurse] - (sent web request on 07-30-18 @ [id number]) (2) Pneumonia Qualifiers: Pneumonia type: due to unspecified organism Laterality: bilateral Lung location: lower lobe of lung Qualified Code(s): J18.1 - Lobar pneumonia, unspecified organism (3) Bimalleolar fracture of left ankle Qualifiers: Encounter type: initial encounter Fracture type: closed Qualified Code(s): S82.842A - Displaced bimalleolar fracture of left lower leg, initial encounter for closed fracture (5) CHF (congestive heart failure) Qualifiers: Heart failure type: unspecified Heart failure chronicity: chronic Qualified Code(s): I50.9 - Heart failure, unspecified
[2018-07-30] MEDS ORDERED: *HR* Propofol 200 MG/20 ML VIAL IVP ONE (13:41)
[2018-07-30] MEDS ORDERED: *HR* OxyCODONE Immed Rel 5 MG TABLET PO PRN (14:25)
[2018-07-30] MEDS ORDERED: Nitroglycerin 0.4 MG TAB.SUBL SL PRN (15:12)
[2018-07-30] MEDS ORDERED: Albuterol 2.5 MG/3 ML NEBULIZER IH PRN (15:12)
[2018-07-30] MEDS ORDERED: Simethicone 80 MG TAB.CHEW PO PRN (15:12)
[2018-07-30] MEDS ORDERED: Naloxone 0.4 MG/ML INJ IVP PRN (15:12)
[2018-07-30] MEDS ORDERED: Acetaminophen 325 MG TABLET PO PRN (15:12)
[2018-07-30] MEDS ORDERED: Ondansetron 4 MG/2 ML VIAL IVP PRN (15:12)
[2018-07-30] MEDS ORDERED: Ipratropium/Albuterol Neb 3 ML ONE (15:19)
--- NOTE | 2018-07-30 15:25 | Anesthesia Evaluation Post Op ---
Date of Encounter: 07/30/18 Time of Encounter: 15:25 - Vital Signs Vital Signs: Vital Signs/O2 Sat/Glucose, Most Current Temp Pulse Resp BP Pulse Ox 07/30/18 15:21 98.0 F 65 18 118/68 91 07/30/18 14:59 97.4 F L 66 16 112/74 100 07/30/18 14:49 97.4 F L 66 14 104/72 92 07/30/18 14:39 71 16 126/58 95 07/30/18 14:29 64 16 121/73 96 07/30/18 14:19 97.1 F L 70 16 118/74 93 07/30/18 11:55 82 18 116/60 92 07/30/18 11:26 89 18 108/96 91 - Lungs Lungs: Clear Ascult./Percussion - Airway Airway: Non-obstructed - Cardiovascular Regular Rate - Mental Status Mental Status: Alert & Oriented, Answers Appropriately - Pain Pain Scale: 0 - Nausea Vomiting Nausea Vomiting: Not Present - Hydration Hydration: Ice chips - Discharge PostOp Status: Transfer Patient to floor
--- NOTE | 2018-07-30 18:02 | Orthopedic Operative Note ---
Date of procedure: 07/30/18 Pre-op diagnosis: Left bimalleolar ankle fracture, injury of syndesmosis Post-op diagnosis: same Procedure: 07/30/18 17:59 1. Open reduction with internal fixation of left bimalleolar ankle fracture 2. Repair of syndesmosis left ankle Implants: [id number] lateral fibular 7 hole locking plate [id number] 3.5mm locking screw x4 [id number] 2.7mm locking screw x4 [id number] 3.5mm cortical screw x2 [id number] 4.0mm cannunlated screw x1 Anesthesia: regional, spinal Surgeon: Jason Richter Was there an assistant teaching professor present: No Estimated blood loss (cc): 5 Tourniquet Time (Minutes): 76 Specimen: None Condition: stable Disposition: floor Procedure in Detail: 07/30/18 18:02 INDICATIONS AND CONSENT Judi Navarrete is a 72 year old female who originally presented with bilateral ankle pain and deformity after a fall in her home. She initially presented to a OSH and was transferred to [facility] for further care. Radiographs indicated bilateral bimalleolar ankle fractures with displacement. T here was also a non-displaced proximal fibular fracture on the left. Given the radiographic findings, surgical intervention was warranted. The patient elected to proceed with open reduction with internal fixation of the ankle fracture with assistance from her daughter who is her POA. We discussed the above procedures in detail. This included a discussion on the indications, contraindications, and possible complications including but not limited to: infection, non-healing wound, pain, swelling, bleeding, blood clots, heart complications, nerve injury, vascular injury, tendon injury, loss of limb, loss of life, non-union, malunion, arthritis, hardware failure, and need for further surgery. We also reviewed the expected post operative course, including a discussion on the non-weightbearing status after this procedure. She related understanding of our discussion regarding this surgery, as with her POA. All questions were answered to their satisfaction, and a proper written informed consent was obtained, signed, and placed in the chart. No guarantees were given, stated or implied, as to the outcome of this procedure. PROCEDURE IN DETAIL The patient was seen in the pre-operative holding area by Anesthesia, where she was consented for spinal and popliteal fossa and adductor canal blocks due to her being at high risk for general anesthesia. The nerve blocks were performed under ultrasound guidance by Anesthesia in the pre-operative holding area. The patient was then brought back to the operative suite and placed on the operating room table in the supine position. A sign-in was performed. A well-padded pneumatic left thigh tourniquet was then placed. Next, the left lower leg was scrubbed, prepped, and draped in the usual aseptic manner. A [place] Time-Out was performed, and all parties in the room agreed. Next, an Esmarch was used to exsanguinate the left foot. The pneumatic thigh tourniquet was inflated to 300 mmHg. Attention was then directed to the left lateral leg where an approximate 8 cm linear incision was made over the distal fibula and extending just distal to the tip of the lateral malleolus. Hematoma and signs of post-traumatic injury were evident. The hematoma was evacuated. The incision was carried down to the level of bone in anatomic layers, paying particular attention to protect and retract all vital neurovascular structures. With the incision down to bone, the fracture site was identified and noted to be a displaced, comminuted fracture at the fibular shaft. A cheema elevator was used to elevate the periosteum both proximal and distal to the fracture site prior to plate fixation. The wound was flushed with copious amounts of sterile saline. The fracture was reduced and stabilized utilizing a point to point bone clamp. The fibula was held out to appropriate anatomic length, confirmed and verified under fluoroscopy. No interfragmentary screw was placed due to the comminution. Next a 7 hole hole 1/3 tubular neutralization locking plate was placed laterally for added stability across the fracture site which was fixated using four 3.5mm locking screws proximally, and four 2.7mm locking screws distally. Stability at the fracture site was noted both clinically and under fluoroscopy with maintenance of reduction and gnosticism of fibular length. Our attention was then directed to the medial malleolus fracture, where a linear incision was made over the medial malleolus fracture. The fracture was reduced and a guidewire was placed for a 4.0mm cannulated screw. The screw was then placed after appropriate drilling. The fracture reduction and anatomic alignment of the ankle mortise was confirmed under fluoroscopy. The guidewire was then removed. Our attention was then directed to the tibial-fibular syndesmosis injury. The ankle was stressed under fluoroscopy with minimal diastasis at the medial gutter and at the distal tibial-fibular joint, however, given the suspected mechanism of injury, syndesmosis was likely compromised. Two 3.5mm cortical screws placed through open holes on the plate and utilized to maintain reduction of the syndesmosis. This was confirmed under fluoroscopy as the ankle joint was stressed with no widening appreciated. The wounds were then flushed with copious amounts of normal sterile saline. Next, deep and subcutaneous tissues were re- approximated using 2-0 Vicryl, 3-0 Vicryl, and 4-0 Vicryl and the skin was re- approximated under minimal tension using 3-0 Nylon at the medial ankle and skin gisela at the lateral ankle. A dry, sterile dressing was then applied, which consisted of: Xeroform, 4x4's, Kerlix fluffs, ABDs, and Kerlix roll. The left thigh tourniquet was then deflated, and a proper hyperemic response was noted to the digits on the left foot. Capillary refill time of the toes on the left foot was also noted to be brisk at this time. A well-padded posterior splint was applied with the foot 90 degrees relative to the lower leg. The posterior splint was then secured to the foot and leg using an YIN bandage. A sign-out was performed. The patient tolerated anesthesia and the procedure well, and was transferred to PAC-U with vital signs stable and vascular status intact to the left lower extremity. Needle and sponge counts were correct X 2 at the end of the case. Dr. Jason Richter was present, scrubbed, and participated in all vital aspects of the procedure. The right ankle fracture was fixated by Dr. Luis Khan. Please see his operative notes for details of the procedure performed on the right ankle. After a brief stay in PAC-U, the patient will be admitted back to the floor for continued monitoring. 07/31/18 06:59
[2018-07-30] MEDS ORDERED: Azithromycin 500 MG in D5% in Water 250 ML IVPB SCH (22:00)
[2018-07-30] MEDS: *HR* Heparin 5,000 UNIT/ML VIAL SQ SCH (22:32)
[2018-07-31] MEDS: Ipratropium/Albuterol Neb 3 ML IH SCH ×4 (04:11→22:21)
[2018-07-31] MEDS: methylPREDNISolone 125 MG/2 ML VIAL IVP SCH (07:00)
[2018-07-31] MEDS: *HR* Heparin 5,000 UNIT/ML VIAL SQ SCH ×2 (07:02→14:20)
[2018-07-31] MEDS: traMADol 50 MG TABLET PO PRN (07:05)
[2018-07-31 09:03] LABS: Adenovirus Not Detected (Not Detect); Bordetella Pertussis Not Detected (Not Detect); Chlamydophila pneumoniae Not Detected (Not Detect); Coronavirus 229E Not Detected (Not Detect); Coronavirus HKU1 Not Detected (Not Detect); Coronavirus NL63 Not Detected (Not Detect); Coronavirus OC43 Not Detected (Not Detect); Human Metapneumovirus Not Detected (Not Detect); Human Rhinovirus/Enterovirus Not Detected (Not Detect); Influenza A Subtype 2009 H1 Not Detected (Not Detect); Influenza A Untypeable Not Detected (Not Detect); Influenza B Not Detected (Not Detect); Mycoplasma pneumoniae Not Detected (Not Detect); Parainfluenza Virus 1 Not Detected (Not Detect); Parainfluenza Virus 2 Not Detected (Not Detect); Parainfluenza Virus 3 Not Detected (Not Detect); Parainfluenza Virus 4 Not Detected (Not Detect); Respiratory Syncytial Virus Not Detected (Not Detect)
[2018-07-31] MEDS: Ringers Solution, Lactated 1,000 ML IVC SCH (10:02)
[2018-07-31] MEDS: cefTRIAXone 2,000 MG in Water for inj. (sterile) 20 ML 20 ML IVP SCH (10:02)
[2018-07-31] MEDS: GuaiFENesin/Dextromethorphan TABLET PO SCH ×2 (10:03→20:11)
--- NOTE | 2018-07-31 10:15 | Podiatry Progress Note ---
Date of Encounter: 07/31/18 Time of Encounter: 09:15 - Assessment and Plan (1) Bimalleolar fracture of left ankle Current Visit: Yes Status: Acute Assessment: -Posterior splint intact, no strike through noted, no swelling above or below splint -Cap refill immediate to all digits -Movement of toes noted -No pain with calf squeeze Plan: -Elevate bilateral lower extremities -Non-weight bearing bilateral lower extremities -Patient instructed to report any pain that is not relieved with medication, swelling of digits, or toes becoming blueish or purple -Recommend switching Heparin to Lovenox sq daily for one month -Recommend ECF placement after discharge -Follow up with Lashanda Cam CNP on Saturday08/05/2018, call office to schedule appointment -Will continue to monitor Qualifiers: Encounter type: initial encounter Fracture type: closed Qualified Code(s): S82.842A - Displaced bimalleolar fracture of left lower leg, initial encounter for closed fracture (2) Closed fracture of right distal fibula Current Visit: Yes Status: Acute Assessment: -Posterior splint intact, no strike through noted, no swelling above or below splint -Cap refill immediate to all digits -Movement of toes noted -No pain with calf squeeze Plan: -Elevate bilateral lower extremities -Non-weight bearing bilateral lower extremities -Patient instructed to report any pain that is not relieved with medication, swelling of digits, or toes becoming blueish or purple -Recommend switching Heparin to Lovenox sq daily for one month -Recommend ECF placement after discharge -Follow up with Lashanda Cam CNP on Saturday08/05/2018, call office to schedule appointment -Will continue to monitor Qualifiers: Encounter type: initial encounter Fracture morphology: unspecified fracture morphology Qualified Code(s): S82.831A - Other fracture of upper and lower end of right fibula, initial encounter for closed fracture Subjective Interval history: Post op day #1, 1. Open reduction with internal fixation of left bimalleolar ankle fracture, 2. Repair of syndesmosis left ankle by Dr. Richter on 07/30/2018 and ORIF right bimalleolar ankle fracture, ORIF syndesmosis by Dr. Khan on 07/30/2018. Patient is alert and oriented x 3, no acute distress noted, well nourished. Family at bedside. She denies any chest pain, shortness of breath, or calf pain. Patient denies any fever, chills, nausea, vomiting, or diarrhea. Patient asking if she has to go to an ECF. Explained to patient that yes she would need to go to an ECF, and that she would be non-weight bearing for 6-8 weeks. Smoking cessation also discussed with patient and the impact it has on healing. Objective - Vital Signs Vital Signs: Vital Signs Temp Pulse Resp BP Pulse Ox 07/31/18 08:01 60 16 91 07/31/18 07:00 97.8 F 64 18 121/74 91 07/31/18 04:11 18 90 07/31/18 03:27 98.3 F 80 15 112/74 93 07/31/18 00:05 16 92 07/30/18 22:46 98.1 F 86 15 113/72 92 07/30/18 21:43 21 90 07/30/18 18:52 97.5 F L 66 15 103/69 90 07/30/18 15:31 16 118/68 92 07/30/18 15:21 98.0 F 65 18 118/68 91 07/30/18 14:59 97.4 F L 66 16 112/74 100 07/30/18 14:49 97.4 F L 66 14 104/72 92 07/30/18 14:39 71 16 126/58 95 07/30/18 14:29 64 16 121/73 96 07/30/18 14:19 97.1 F L 70 16 118/74 93 07/30/18 11:55 82 18 116/60 92 07/30/18 11:26 89 18 108/96 91 07/30/18 11:00 18 96 Intake and Output 07/30/18 07/31/18 07/31/18 23:59 07:59 15:59 Intake Total 1381 / 1381 1470 / 1470 Output Total 400 / 400 450 / 450 Balance 981 / 981 -450 / -450 1470 / 1470 Intake: IV Fluids 1270 / 1270 Lactated Ringers 1,000 ML @ 100 1000 / 1000 mls/hr IVC .Q10H [facility] Rx#: [id number] Rocephin 2,000 MG In Water for inj. (sterile) 20 ML @ 600 mls/ hr IVP Q24H [facility] Rx#:[id number] Zithromax 500 mg In Dextrose 5% 250 / 250 250 ML @ 252 mls/hr IVPB Q24H [facility] Rx#:[id number] Oral 1381 / 1381 200 / 200 Output: Catheter 400 / 400 450 / 450 Other: Meal Dinner Breakfast Percent of Meal Consumed 95% 50% - Exam Exam: Constitutional: Patient is alert and oriented x 3, no acute distress noted, well nourished Vascular: No swelling noted above or below posterior splints, cap refill immediate to all digits, no pain with hussein compression/calf squeeze to bilateral calfs Neurological: Sensation intact, proprioception dorsiflexion/plantar flexion intact of bilateral hallux Dermatological: Posterior splints intact, no strike through noted, distal digits without swelling noted, no swelling above or below posterior splints - Lab Result Diagrams: 07/30/18 08:49 07/30/18 08:49 Labs: Abnormal lab results MCHC 30.5 g/dL (31.6-35.5) L 07/30/18 08:49 Nucleated RBCs/100 WBC 0.4 /100 WBC (0) H 07/30/18 08:49 PT 15.8 Seconds (9.4-12.1) H 07/29/18 01:43 ABG pH 7.27 pH Units (7.32-7.45) L 07/29/18 17:55 ABG pCO2 89 mmHg (35-45) H* 07/29/18 17:55 ABG HCO3 41 mEq/L (21-27) H 07/29/18 17:55 ABG Total CO2 44 mEq/L (20-26) H 07/29/18 17:55 ABG Base Excess 10 mEq/L (-2 to 3) H 07/29/18 17:55 Carbon Dioxide 37 mEq/L (23-29) H 07/30/18 08:49 Creatinine 0.57 mg/dL (0.60-1.20) L 07/30/18 08:49 BUN/Creatinine Ratio 32 (6-26) H 07/30/18 08:49 Glucose 127 mg/dL (70-105) H 07/30/18 08:49 GGT 26 Units/L (1-24) H 07/29/18 01:43 AST 142 Units/L (13-39) H 07/30/18 08:49 ALT 551 Units/L (7-52) H 07/30/18 08:49 Ammonia 59 mcmol/L (16-53) H 07/28/18 17:00 Serum Total Protein 5.3 g/dL (6.4-8.9) L 07/30/18 08:49 Albumin 3.0 g/dL (3.5-5.7) L 07/30/18 08:49 Globulin 2.3 g/dL (2.4-3.5) L 07/30/18 08:49 Salicylates < 2.5 mg/dL (15.0-30.0) L 07/29/18 01:43 Acetaminophen < 10 mcg/mL (10-20) L 07/29/18 01:43 Consult Discharge Plan - Plan Referrals: Radha Garza MD [Primary Care Provider] - Jamie Gamboa CNP [Advanced Practice Nurse] - (sent web request on 07-30-18 @ 1714)
[2018-07-31] MEDS: *HR* HYDROcodone/Acet 5/325 mg TABLET PO PRN ×2 (11:31→18:29)
--- NOTE | 2018-07-31 12:58 | Gastroenterology Consult Note ---
Date of Encounter: 07/31/18 Time of Encounter: 11:00 - Assessment and plan (1) Transaminitis Current Visit: Yes Status: Acute Assessment and plan: Likely due to medication (Atorvastatin) vs fatty liver. On admission TB 0.7, AST 749, ALT 1065, alk phos 111. Yesterday TB 0.4, AST 434, ALT 856, alk phos 97. Hepatitis profile negative. Liver US hyperechoic inhomogeneous liver but no focal abnormality. CT A/P showed fatty liver. Check liver workup (AFP, alpha-1 antitrypsin, NATY, ANCA, CBC, ceruloplasmin, CMP, F actin, ferritin, AMA, liver ultrasound). (2) Hepatic steatosis Current Visit: Yes Status: Acute Assessment and plan: Check liver workup (AFP, alpha-1 antitrypsin, NATY, ANCA, CBC, ceruloplasmin, CMP, F actin, ferritin, AMA, liver ultrasound). LIFESTYLE MODIFICATION: DIETARY ADVISE: Gradual weight loss of 7-10%. Moderate caloric restriction of 500-700 Kcal/day Eliminate or significantly reduce saturated fatty acids and high fructose corn syrup from diet Consider omega-3 fatty acids supplements Consider regular coffee consumption, 2-3 cups/day if can be tolerated EXERCISE ADVISE: Moderate exercise on treadmill, elliptical or in a pool, 4-5/week for 30-45 minutes. Resistance training 3 times/week Pharmacotherapy: Vitamin E 800 IU daily (keeping in mind that it has been shown to increase all causes of mortality and may be linked to prostate cancer) Pioglitazone 30-45 mg/day (can cause weight gain, bladder cancer, can cause cadiovascular side effects) Statins are safe to use, and also improve portal hypertension and decrease risk of HCC. Control of the components of metabolic syndrome - Time Spent With Patient Total time spent is greater than 50% in coordination of care (as documented) at patient's floor/unit and/or counseling patient: GI History of Present Illness - Data of Consult Patient: new to practice Consult date: 07/31/18 Requesting Physician: Puma Vernon MD - Consult Narrative Reason for consult: Elevated LFTs History of present illness: Ms. Navarrete is a 72 year old female with PMHx of CHF, COPD, HLD, HTN, [place] ankles (tib/fib). Patient had ORIF left bimalleolar ankle fracture and repair of syndesmosis left ankle by Dr. Richter and ORIF right bimalleolar ankle fracture, ORIF syndesmosis by Dr. Khan yesterday. We were consulted to evaluate elevated AST and ALT. Liver US hyperechoic inhomogeneous liver but no focal abnormality. CT A/P showed fatty liver. Patient is taking Atorvastatin as well. Procedures: None NSAIDs: ASA, ibuprofen Anticoagulation: None Past Med Surg Social Fam HX - Past Medical History Medical history: CHF, COPD, hyperlipidemia, hypertension Psychiatric history: no psych history - Past Surgical History Surgical History: hysterectomy - Social History Smoking Status: Current every day smoker Smokeless Tobacco Status: No Alcohol use: none Drug use: none - Family History Daughter Hx Family Respiratory Disorders: Yes (COPD/ EMPHYSEMA) Father Hx Family Cardiac Disorders: Yes (DE) Hx Family Endocrine Disorder: Yes (DM) - Gastrointestinal Gastrointestinal: Present: as per HPI - Constitutional Constitutional: as per HPI - EENT Eyes: as per HPI Ears: Present: as per HPI Nose, mouth and throat: Present: as per HPI - Cardiovascular Cardiovascular ROS: Present: as per HPI - Respiratory Respiratory IM: Present: as per HPI - Genitourinary Genitourinary: Absent: change in color, Urinary frequency - Neurological ROS Neurological GI: Present: as per HPI - Hematologic/Lymphatic Hematologic/Lymphatic pediatric: Present: as per HPI - Musculoskeletal Musculoskeletal ROS GI: Present: as per HPI - Integumentary Integumentary GI: Present: as per HPI - Psychiatric ROS Psychiatric GI: Present: as per HPI - Endocrine Endocrine IM: Present: as per HPI - Constitutional Vitals: Temp Pulse Resp BP Pulse Ox 98.1 F 73 17 126/78 92 07/31/18 11:59 07/31/18 11:59 07/31/18 11:59 07/31/18 11:59 07/31/18 11:59 General appearance: Present: cooperative, A&O X 3, no acute distress, answers questions appropriately - Head Head exam: Present: atraumatic, normocephalic - Eye Eye exam: Present: normal appearance, sclera anicteric - ENT ENT exam: Present: mucous membranes moist - Neck Neck exam general surgery: Present: normal inspection, trachea midline - Respiratory Respiratory exam: Present: CTAB. Absent: rales, rhonchi - Cardiovascular Cardiovascular exam: Present: RRR, +S1, +S2 - GI/Abdominal GI/Abdominal exam: Present: soft, no peritoneal signs. Absent: distended, firm, guarding, tenderness - Rectal Rectal exam: Present: deferred - Neurological Exam Neurological exam: Present: no focal deficits - Psychiatric Psychiatric exam: Present: normal affect, normal mood - Skin Skin exam: Present: dry, intact, normal color, warm Results - Labs CBC & Chem 7: 07/30/18 08:49 07/30/18 08:49 Labs: Last Result Calcium 8.6 mg/dL (8.6-10.3) 07/30/18 08:49 Salicylates < 2.5 mg/dL (15.0-30.0) L 07/29/18 01:43 Entire Visit Hgb 13.3 g/dL (11.5-15.4) 07/30/18 08:49 Hct 43.6 % (35.3-44.9) 07/30/18 08:49 PT 15.8 Seconds (9.4-12.1) H 07/29/18 01:43 Total Bilirubin 0.4 mg/dL (0.3-1.0) 07/30/18 08:49 AST 142 Units/L (13-39) H 07/30/18 08:49 ALT 551 Units/L (7-52) H 07/30/18 08:49 Ammonia 59 mcmol/L (16-53) H 07/28/18 17:00 Lipase 11 Units/L (11-82) 07/28/18 13:52 Acetaminophen < 10 mcg/mL (10-20) L 07/29/18 01:43 - ABG ABG results: ABG ABG pH 7.27 pH Units (7.32-7.45) L 07/29/18 17:55 ABG pCO2 89 mmHg (35-45) H* 07/29/18 17:55 ABG pO2 91 mmHg (85-104) 07/29/18 17:55 ABG O2 Saturation 95 % (95-98) 07/29/18 17:55 PT/INR, D-dimer PT 15.8 Seconds (9.4-12.1) H 07/29/18 01:43 - Impressions Impressions Ankle X-Ray 07/30/18 00:00 IMPRESSION: Intraprocedural fluoroscopic spot images as above. See separate procedure report for more information. D/ / 07/30/2018 14:42:13 Mesfin Cesar MD / Fatou Roy Interpreting Provider: Mesfin Cesar MD Ankle X-Ray 07/30/18 00:00 IMPRESSION: Intraprocedural fluoroscopic spot images as above. See separate procedure report for more information. D/ / 07/30/2018 14:42:13 Mesfin Cesar MD / Fatou Roy Interpreting Provider: Mesfin Cesar MD Fluoroscopy 07/30/18 00:00 IMPRESSION: Intraprocedural fluoroscopic spot images as above. See separate procedure report for more information. D/ / 07/30/2018 14:42:13 Mesfin Cesar MD / Fatou Roy Interpreting Provider: Mesfin Cesar MD Fluoroscopy 07/30/18 00:00 IMPRESSION: Intraprocedural fluoroscopic spot images as above. See separate procedure report for more information. D/ / 07/30/2018 14:42:13 Mesfin Cesar MD / Fatou Roy Interpreting Provider: Mesfin Cesar MD Consult Discharge Plan - Plan Referrals: Radha Garza MD [Primary Care Provider] - Jamie Gamboa, HISTORICAL GUIDE [Advanced Practice Nurse] - (sent web request on 07-30-18 @ [phone])
[2018-07-31 13:58] LABS: Hematocrit 43.6 % (35.3-44.9); Hemoglobin 13.1 g/dL (11.5-15.4); Mean Corpuscular Hemoglobin 28.7 pg (28.0-33.3); Mean Corpuscular Volume 95.6 fL (83.0-100.0); Mean Platelet Volume 9.9 fL (9.4-12.4); Platelet Count 151 K/mcL (140-400); Red Blood Count 4.56 M/mcL (3.82-4.97)
[2018-07-31 14:07] LABS: INR 1.2
[2018-07-31 14:26] LABS: Alanine Aminotransferase 337 Units/L (7-52); Albumin/Globulin Ratio 1.2 (1.1-2.2); Alkaline Phosphatase 67 Units/L (34-104); Aspartate Amino Transferase 39 Units/L (13-39); BUN/Creatinine Ratio 25 (6-26); Bilirubin,Total 0.3 mg/dL (0.3-1.0); Blood Urea Nitrogen 18 mg/dL (8-23); Calcium 8.7 mg/dL (8.6-10.3); Carbon Dioxide 32 mEq/L (23-29); Chloride 99 mEq/L (98-107); Globulin 2.6 g/dL (2.4-3.5); Glucose 316 mg/dL (70-105); Osmolality,Calculated 300 (280-300); Sodium 138 mEq/L (136-145); Total Protein 5.6 g/dL (6.4-8.9); eGFR For Non-African Americans > 60 (> 60)
[2018-07-31 14:34] LABS: Ferritin 39 ng/mL (10-120)
--- NOTE | 2018-07-31 15:51 | Internal Med Progress Note ---
Hospitalist Progress Note - Encounter Date of Encounter: 07/31/18 Time of Encounter: 15:49 - Subjective Interval History: I have seen and evaluated the patient at bedside. She reports generalized weakness, denies shortness of breath or chest pain. No clinically Significant events in the past 24-hour - Exam Vitals: Temp Pulse Resp BP Pulse Ox 98.1 F 70 17 126/78 93 07/31/18 11:59 07/31/18 14:21 07/31/18 11:59 07/31/18 11:59 07/31/18 14:21 Exam: Vitals: Reviewed. General: Obese, Alert and oriented x4. In mild distress due to generalized weakness Cardiovascular: RRR, normal S1 & S2, no rubs, murmurs or gallops. No JVD. Pulse regular. Lungs: CTA b/l, no wheezes or crackles. Abdomen: Obese, soft, non-tender, no rigidity. Extremities: b/l extremities wrapped Neurological: Normal cognition Rest of the physical exam is non contributory - Assessment and Plan (1) Acute respiratory failure with hypoxia and hypercarbia Current Visit: Yes Status: Acute Assessment and Plan: Chest is clear to auscultation bilaterally. Patient denies respiratory distress. Continue bronchodilators as scheduled. Decrease methylprednisolone to 40 mg IV twice a day. Incentive spirometry. Oxygen by nasal cannula, titrate for O2 sat duration more than 92%. (2) Pneumonia Current Visit: Yes Status: Suspected Assessment and Plan: Continue empiric coverage with ceftriaxone 2 g IV daily. Discontinue azithromycin. (3) Bimalleolar fracture of left ankle Current Visit: Yes Status: Acute Assessment and Plan: Recommendation by pipe bowls paint trimmer team. Patient is scheduled to follow-up with their office on Saturday08/05/18. -Elevate bilateral lower extremities -Non-weight bearing bilateral lower extremities (4) CHF (congestive heart failure) Current Visit: Yes Status: Chronic Assessment and Plan: Patient is euvolemic. Discontinue IV fluids. Add furosemide 40 mg by mouth daily. Home dose. Fluid restriction to 1.5 L a day. Resume lisinopril 10 mg by mouth daily. (5) Transaminitis Current Visit: Yes Status: Acute Assessment and Plan: GI consulted recommendation appreciated. We will continue to follow liver function, trending down. (6) Hyperglycemia Current Visit: Yes Status: Acute Assessment and Plan: likely due to IV steroids. will add insulin coverage. A1C ordered. DVT Prophylaxis: Discontinue heparin. will start lovenox per Podistrist recommendations. - Summary of Assessment and Plan Summary of Assessment and Plan: patient to remain in the hospital pending placement to rehab - Time Spent with Patient Total time spent is greater than 50% in coordination of care (as documented) at patient's floor/unit and/or counseling patient: Greater than 35 minutes (40) Plan of Care Discussed with: patient (her family and the nurse) Internal Medicine: Result - Labs CBC & Chem 7: 07/31/18 13:28 07/31/18 13:28 Labs: Short CBC 07/31/18 Range/Units 13:28 WBC 8.3 D (4.3-11.1) K/mcL Hgb 13.1 (11.5-15.4) g/dL Hct 43.6 (35.3-44.9) % Plt Count 151 (140-400) K/mcL BMP 07/31/18 13:28 Sodium 138 Potassium 4.0 Chloride 99 Carbon Dioxide 32 H BUN 18 Creatinine 0.73 Glucose 316 H Calcium 8.7 Liver Function 07/31/18 Range/Units 13:28 Total Bilirubin 0.3 (0.3-1.0) mg/dL AST 39 (13-39) Units/L ALT 337 H (7-52) Units/L Alkaline Phosphatase 67 (34-104) Units/L Albumin 3.0 L (3.5-5.7) g/dL - ABG Interpretation ABG results: ABG ABG pH 7.27 pH Units (7.32-7.45) L 07/29/18 17:55 ABG pCO2 89 mmHg (35-45) H* 07/29/18 17:55 ABG pO2 91 mmHg (85-104) 07/29/18 17:55 ABG O2 Saturation 95 % (95-98) 07/29/18 17:55 PT/INR, D-dimer PT 14.0 Seconds (9.4-12.1) H 07/31/18 13:28 Consult Discharge Plan - Plan Referrals: Radha Garza MD [Primary Care Provider] - Jamie Gamboa, WRAPPING MACHINE TENDER [Advanced Practice Nurse] - (sent web request on 07-30-18 @ [phone]) (2) Pneumonia Qualifiers: Pneumonia type: due to unspecified organism Laterality: bilateral Lung location: lower lobe of lung Qualified Code(s): J18.1 - Lobar pneumonia, unspecified organism (3) Bimalleolar fracture of left ankle Qualifiers: Encounter type: initial encounter Fracture type: closed Qualified Code(s): S82.842A - Displaced bimalleolar fracture of left lower leg, initial encounter for closed fracture (4) CHF (congestive heart failure) Qualifiers: Heart failure type: unspecified Heart failure chronicity: chronic Qualified Code(s): I50.9 - Heart failure, unspecified
[2018-07-31] MEDS ORDERED: D5% in Water 1,000 ML IVC PRN (15:57)
[2018-07-31] MEDS ORDERED: Dextrose Gel 15 GM/37.5 ML TUBE PO PRN ×2 (15:57)
[2018-07-31] MEDS ORDERED: *HR* Dextrose 50 % in Water (Syg) 50 ML SYRINGE IVP PRN (15:57)
[2018-07-31] MEDS: MethylPREDNISolone 40 MG/ML VIAL IVP SCH (18:29)
[2018-07-31] MEDS: Insulin LISPRO 300 UNITS/3 ML VIAL SQ SCH (18:30)
[2018-08-01 04:02] LABS: Basophils % 0.1 %; Hematocrit 43.1 % (35.3-44.9); Hemoglobin 13.2 g/dL (11.5-15.4); Immature Granulocytes % 0.2 % (0-4); Lymphocytes # 0.5 K/mcL (0.6-4.6); Lymphocytes % 5.4 %; Mean Corpuscular HGB Conc 30.6 g/dL (31.6-35.5); Mean Corpuscular Hemoglobin 28.7 pg (28.0-33.3); Mean Corpuscular Volume 93.7 fL (83.0-100.0); Monocytes # 0.5 K/mcL (0.0-1.3); Monocytes % 5.7 %; Neutrophils # 7.6 K/mcL (1.6-8.9); Nucleated Red Blood Cells 0.2 /100 WBC (0); Platelet Count 128 K/mcL (140-400); Red Cell Distribution Width 14.1 % (11.5-14.5); Segmented Neutrophils % 88.6 %
[2018-08-01 04:23] LABS: BUN/Creatinine Ratio 31 (6-26); Blood Urea Nitrogen 18 mg/dL (8-23); Calcium 8.6 mg/dL (8.6-10.3); Carbon Dioxide 34 mEq/L (23-29); Chloride 101 mEq/L (98-107); Glucose 149 mg/dL (70-105); Magnesium 1.8 mg/dL (1.6-2.6); Osmolality,Calculated 293 (280-300); Phosphorous 2.5 mg/dL (2.7-4.5); Potassium 4.5 mEq/L (3.5-5.1); Sodium 139 mEq/L (136-145); eGFR For Non-African Americans > 60 (> 60)
[2018-08-01] MEDS: Ipratropium/Albuterol Neb 3 ML IH SCH ×4 (04:37→22:31)
[2018-08-01] MEDS: *HR* Enoxaparin 40 MG/0.4 ML SYRINGE SQ SCH (06:47)
[2018-08-01] MEDS: MethylPREDNISolone 40 MG/ML VIAL IVP SCH ×2 (06:47→17:41)
[2018-08-01] MEDS: Insulin LISPRO 300 UNITS/3 ML VIAL SQ SCH ×3 (07:45→17:02)
[2018-08-01] MEDS ORDERED: Acetaminophen/Aspirin/Caffeine TABLET PO PRN (10:09)
[2018-08-01] MEDS ORDERED: Nitroglycerin 0.4 MG TAB.SUBL SL PRN (10:09)
[2018-08-01] MEDS: cefTRIAXone 2,000 MG in Water for inj. (sterile) 20 ML 20 ML IVP SCH (10:13)
[2018-08-01] MEDS: GuaiFENesin/Dextromethorphan TABLET PO SCH ×2 (10:15→20:31)
[2018-08-01] MEDS: Furosemide 40 MG TABLET PO SCH (10:15)
[2018-08-01 10:20] LABS: Estimated Average Glucose 137 mg/dl; Hemoglobin A1C 6.4 %
[2018-08-01 12:09] LABS: AFP Tumor Marker Non-Pregnant 1 ng/mL (0-9)
[2018-08-01] MEDS: traMADol 50 MG TABLET PO PRN ×2 (12:11→20:31)
--- NOTE | 2018-08-01 12:28 | Podiatry Progress Note ---
Date of Encounter: 08/01/18 Time of Encounter: 12:20 - Assessment and Plan (1) Bimalleolar fracture of left ankle Current Visit: Yes Status: Acute Assessment: -Posterior splint intact, no strike through noted, no swelling above or below splint -Cap refill immediate to all digits -Movement of toes noted -No pain with calf squeeze Plan: -Elevate bilateral lower extremities -Non-weight bearing bilateral lower extremities -Patient instructed to report any pain that is not relieved with medication, swelling of digits, or toes becoming blueish or purple -Recommend ECF placement after discharge -Follow up with Lashanda Cam CNP on Saturday08/05/2018, call office to schedule appointment -Will continue to monitor Qualifiers: Encounter type: initial encounter Fracture type: closed Qualified Code(s): S82.842A - Displaced bimalleolar fracture of left lower leg, initial encounter for closed fracture (2) Closed fracture of right distal fibula Current Visit: Yes Status: Acute Assessment: -Posterior splint intact, no strike through noted, no swelling above or below splint -Cap refill immediate to all digits -Movement of toes noted -No pain with calf squeeze Plan: -Elevate bilateral lower extremities -Non-weight bearing bilateral lower extremities -Patient instructed to report any pain that is not relieved with medication, swelling of digits, or toes becoming blueish or purple -Recommend ECF placement after discharge -Follow up with Lashanda Cam CNP on Saturday08/05/2018, call office to schedule appointment -Will continue to monitor Qualifiers: Encounter type: initial encounter Fracture morphology: unspecified fracture morphology Qualified Code(s): S82.831A - Other fracture of upper and lower end of right fibula, initial encounter for closed fracture Subjective Interval history: Post op day #2, 1. Open reduction with internal fixation of left bimalleolar ankle fracture, 2. Repair of syndesmosis left ankle by Dr. Richter on 07/30/2018 and ORIF right bimalleolar ankle fracture, ORIF syndesmosis by Dr. Khan on 07/30/2018. Patient is alert and oriented x 3, no acute distress noted, well nourished. Family at bedside. She denies any chest pain, shortness of breath, or calf pain. Patient denies any fever, chills, nausea, vomiting, or diarrhea. Bilateral posterior splints intact, and lower extremities elevated. Objective - Vital Signs Vital Signs: Vital Signs Temp Pulse Resp BP Pulse Ox 08/01/18 11:08 98.9 F 80 20 126/72 90 08/01/18 10:35 18 91 08/01/18 07:08 97.8 F 64 20 127/72 92 08/01/18 04:37 19 90 08/01/18 03:38 98.3 F 67 15 151/92 93 07/31/18 23:01 98.2 F 70 14 155/88 92 07/31/18 22:21 18 92 07/31/18 19:49 98.1 F 72 14 121/75 90 07/31/18 17:40 98.0 F 61 16 122/77 92 07/31/18 14:21 70 93 Intake and Output 07/31/18 08/01/18 08/01/18 23:59 07:59 15:59 Intake Total 1200 / 1200 240 / 240 Output Total 300 / 300 625 / 625 300 / 300 Balance 900 / 900 -625 / -625 -60 / -60 Intake: IV Fluids 1000 / 1000 Lactated Ringers 1,000 ML @ 100 1000 / 1000 mls/hr IVC .Q10H LIEN Rx#: [id number] Oral 200 / 200 240 / 240 Output: Catheter 300 / 300 625 / 625 300 / 300 Other: Meal Breakfast Percent of Meal Consumed 100% Weight 90 kg Blood Glucose* 119 105 191 Patient Weight 08/01/18 23:59 Weight 90 kg - Exam Exam: Constitutional: Patient is alert and oriented x 3, no acute distress noted, well nourished Vascular: No swelling noted above or below posterior splints, cap refill immediate to all digits, no pain with husesin compression/calf squeeze to bilateral calfs Neurological: Sensation intact, proprioception dorsiflexion/plantar flexion intact of bilateral hallux Dermatological: Posterior splints intact, no strike through noted, distal digits without swelling noted, no swelling above or below posterior splints - Lab Result Diagrams: 08/01/18 03:12 08/01/18 03:12 Labs: Abnormal lab results MCHC 30.6 g/dL (31.6-35.5) L 08/01/18 03:12 Plt Count 128 K/mcL (140-400) L 03/15/19 03:12 Lymphocytes # 0.5 K/mcL (0.6-4.6) L 08/01/18 03:12 Nucleated RBCs/100 WBC 0.2 /100 WBC (0) H 08/01/18 03:12 PT 14.0 Seconds (9.4-12.1) H 07/31/18 13:28 ABG pH 7.27 pH Units (7.32-7.45) L 07/29/18 17:55 ABG pCO2 89 mmHg (35-45) H* 07/29/18 17:55 ABG HCO3 41 mEq/L (21-27) H 07/29/18 17:55 ABG Total CO2 44 mEq/L (20-26) H 07/29/18 17:55 ABG Base Excess 10 mEq/L (-2 to 3) H 07/29/18 17:55 Carbon Dioxide 34 mEq/L (23-29) H 08/01/18 03:12 Creatinine 0.59 mg/dL (0.60-1.20) L 08/01/18 03:12 BUN/Creatinine Ratio 31 (6-26) H 08/01/18 03:12 Glucose 149 mg/dL (70-105) H 08/01/18 03:12 POC Glucose 105 mg/dL (70-99) H 08/01/18 07:11 Hemoglobin A1c 6.4 % (-5.6) H 08/01/18 03:12 Phosphorus 2.5 mg/dL (2.7-4.5) L 08/01/18 03:12 GGT 26 Units/L (1-24) H 07/29/18 01:43 ALT 337 Units/L (7-52) H 07/31/18 13:28 Ammonia 59 mcmol/L (16-53) H 07/28/18 17:00 Serum Total Protein 5.6 g/dL (6.4-8.9) L 07/31/18 13:28 Albumin 3.0 g/dL (3.5-5.7) L 07/31/18 13:28 Salicylates < 2.5 mg/dL (15.0-30.0) L 07/29/18 01:43 Acetaminophen < 10 mcg/mL (10-20) L 07/29/18 01:43 Consult Discharge Plan - Plan Referrals: Radha Garza MD [Primary Care Provider] - Jamie Gamboa CNP [Advanced Practice Nurse] - (sent web request on 07-30-18 @ [phone])
--- NOTE | 2018-08-01 15:34 | Internal Med Progress Note ---
Hospitalist Progress Note - Encounter Date of Encounter: 08/01/18 Time of Encounter: 08:00 - Subjective Interval History: patient was seen and examined at bedside. she reports that her respiratory status has improved. denies N/V/D. denies chest pain or palpitations. family at bedside all questions answered. tolerating Po diet. - Exam Vitals: Temp Pulse Resp BP Pulse Ox 97.6 F 66 20 118/72 94 08/01/18 15:20 08/01/18 15:20 08/01/18 15:20 08/01/18 15:20 08/01/18 15:20 Exam: Vitals: Reviewed. General: Obese, Alert and oriented x4. NAD, speaks in full sentences Cardiovascular: RRR, normal S1 & S2, no rubs, murmurs or gallops. No JVD. Pulse regular. Lungs: distant heart sounds secondary to body habitus, CTA b/l, no wheezes or crackles. Abdomen: Obese, soft, non-tender, no rigidity. Extremities: b/l extremities wrapped Neurological: no focal deficit, wiggles toes. - Assessment and Plan (1) Acute respiratory failure with hypoxia and hypercarbia Current Visit: Yes Status: Acute Assessment and Plan: Chest is clear to auscultation bilaterally. Patient denies respiratory distress. Continue bronchodilators as scheduled. will switch her to PO steroids for taper in the AM. Incentive spirometry. Oxygen by nasal cannula, titrate for O2 sat duration more than 92%. ABG and CXR in AM (2) Pneumonia Current Visit: Yes Status: Suspected Assessment and Plan: Continue empiric coverage with ceftriaxone 2 g IV daily. azithromycin was discontinued as she recieved 3 days urine antigens pending sputum cx follow cxr and ABG in AM (3) COPD exacerbation Current Visit: Yes Status: Acute Assessment and Plan: current everyday smoker. was counseled management as above (4) Bimalleolar fracture of left ankle Current Visit: Yes Status: Acute Assessment and Plan: Recommendation by human resources officer team. Patient is scheduled to follow-up with their office on Saturday08/05/18. -Elevate bilateral lower extremities -Non-weight bearing bilateral lower extremities -management as per podiatry (5) Transaminitis Current Visit: Yes Status: Acute Assessment and Plan: GI consulted recommendation appreciated. We will continue to follow liver function, trending down. (6) CHF (congestive heart failure) Current Visit: Yes Status: Chronic Assessment and Plan: Patient is euvolemic. continue with home lasix and lisinopril Fluid restriction to 1.5 L a day. TTE Impressions: LVEF 60%. Mild left ventricular diastolic dysfunction. Normal right ventricular structure and function. Mild tricuspid regurgitation. Mild pulmonary hypertension. There is a trivial pericardial effusion present. There is no echocardiographic evidence of tamponade. (7) Hyperglycemia Current Visit: Yes Status: Acute Assessment and Plan: likely due to IV steroids. will add insulin coverage. a1c 6.4 (8) Obesity (BMI 35.0-39.9 without comorbidity) Current Visit: Yes Status: Acute Assessment and Plan: was counseled on diet and nutrition (9) DVT prophylaxis Current Visit: Yes Status: Acute Assessment and Plan: lovenox - Time Spent with Patient Total time spent is greater than 50% in coordination of care (as documented) at patient's floor/unit and/or counseling patient: Internal Medicine: Result - Labs CBC & Chem 7: 08/01/18 03:12 08/01/18 03:12 Labs: Short CBC 08/01/18 Range/Units 03:12 WBC 8.6 (4.3-11.1) K/mcL Hgb 13.2 (11.5-15.4) g/dL Hct 43.1 (35.3-44.9) % Plt Count 128 L (140-400) K/mcL Neutrophils # 7.6 (1.6-8.9) K/mcL BMP 08/01/18 03:12 Sodium 139 Potassium 4.5 Chloride 101 Carbon Dioxide 34 H BUN 18 Creatinine 0.59 L Glucose 149 H Calcium 8.6 - ABG Interpretation ABG results: ABG ABG pH 7.27 pH Units (7.32-7.45) L 07/29/18 17:55 ABG pCO2 89 mmHg (35-45) H* 07/29/18 17:55 ABG pO2 91 mmHg (85-104) 07/29/18 17:55 ABG O2 Saturation 95 % (95-98) 07/29/18 17:55 PT/INR, D-dimer PT 14.0 Seconds (9.4-12.1) H 07/31/18 13:28 Consult Discharge Plan - Plan Referrals: Radha Garza MD [Primary Care Provider] - Jamie Gamboa CNP [Advanced Practice Nurse] - (sent web request on 07-30-18 @ [phone]) (2) Pneumonia Qualifiers: Pneumonia type: due to unspecified organism Laterality: bilateral Lung location: lower lobe of lung Qualified Code(s): J18.1 - Lobar pneumonia, unspecified organism (4) Bimalleolar fracture of left ankle Qualifiers: Encounter type: initial encounter Fracture type: closed Qualified Code(s): S82.842A - Displaced bimalleolar fracture of left lower leg, initial encounter for closed fracture (6) CHF (congestive heart failure) Qualifiers: Heart failure type: diastolic Heart failure chronicity: chronic Qualified Code(s): I50.32 - Chronic diastolic (congestive) heart failure
[2018-08-01] MEDS: *HR* HYDROcodone/Acet 5/325 mg TABLET PO PRN (17:41)
[2018-08-02 02:48] LABS: Hematocrit 41.5 % (35.3-44.9); Hemoglobin 13.3 g/dL (11.5-15.4); Mean Corpuscular Hemoglobin 29.4 pg (28.0-33.3); Mean Corpuscular Volume 91.8 fL (83.0-100.0); Mean Platelet Volume 9.8 fL (9.4-12.4); Platelet Count 131 K/mcL (140-400); Red Blood Count 4.52 M/mcL (3.82-4.97); Red Cell Distribution Width 14.1 % (11.5-14.5)
[2018-08-02 03:07] LABS: BUN/Creatinine Ratio 24 (6-26); Blood Urea Nitrogen 20 mg/dL (8-23); Calcium 8.6 mg/dL (8.6-10.3); Carbon Dioxide 33 mEq/L (23-29); Chloride 99 mEq/L (98-107); Glucose 161 mg/dL (70-105); Osmolality,Calculated 292 (280-300); Potassium 4.3 mEq/L (3.5-5.1); Sodium 138 mEq/L (136-145); eGFR For Non-African Americans > 60 (> 60)
[2018-08-02] MEDS: Ipratropium/Albuterol Neb 3 ML IH SCH ×4 (04:34→21:38)
[2018-08-02] MEDS: *HR* Enoxaparin 40 MG/0.4 ML SYRINGE SQ SCH (05:17)
[2018-08-02] MEDS: MethylPREDNISolone 40 MG/ML VIAL IVP SCH (05:17)
[2018-08-02] MEDS: Insulin LISPRO 300 UNITS/3 ML VIAL SQ SCH ×3 (08:00→17:25)
[2018-08-02 08:09] LABS: ANA IgG by ELISA NONE DETECTED (None Detected); F-Actin (sm muscle) Ab IgG 6 Units (0-19)
[2018-08-02 08:46] LABS: ABG Base Excess 8 mEq/L (-2 to 3); ABG HCO3 35 mEq/L (21-27); ABG Oxygen Saturation 92 % (95-98); ABG PCO2 56 mmHg (35-45); ABG PH 7.41 pH Units (7.32-7.45); ABG PO2 66 mmHg (85-104); ABG TCO2 37 mEq/L (20-26)
[2018-08-02] MEDS: GuaiFENesin/Dextromethorphan TABLET PO SCH ×2 (09:32→20:32)
[2018-08-02] MEDS: Furosemide 40 MG TABLET PO SCH (09:32)
[2018-08-02] MEDS: cefTRIAXone 2,000 MG in Water for inj. (sterile) 20 ML 20 ML IVP SCH (09:32)
--- NOTE | 2018-08-02 11:39 | Internal Med Progress Note ---
Hospitalist Progress Note - Encounter Date of Encounter: 08/02/18 Time of Encounter: 09:00 - Subjective Interval History: Patient was seen and examined at bedside. Reports that her respiratory status is improved. Family at bedside all questions answered. Understands that we are waiting for insurance authorization for her to go to a rehabilitation facility for further physical therapy. She denies chest pain, shortness of breath, palpitations, cough, wheezing, nausea, vomiting, diarrhea. Tolerating by mouth diet. Pain is controlled. - Exam Vitals: Temp Pulse Resp BP Pulse Ox 98.2 F 71 16 115/71 96 08/02/18 07:37 08/02/18 07:37 08/02/18 07:37 08/02/18 07:37 08/02/18 07:37 Exam: Vitals: Reviewed. General: Obese, Alert and oriented x4. NAD, speaks in full sentences Cardiovascular: RRR, normal S1 & S2, no rubs, murmurs or gallops. No JVD. Pulse regular. Lungs: distant heart sounds secondary to body habitus, CTA b/l, no wheezes or crackles. Abdomen: Obese, soft, non-tender, no rigidity. Extremities: b/l extremities wrapped Neurological: no focal deficit, wiggles toes. - Assessment and Plan (1) Acute respiratory failure with hypoxia and hypercarbia Current Visit: Yes Status: Acute Assessment and Plan: Continue bronchodilators as scheduled. Started her on by mouth steroids and continue to taper on discharge Ceftriaxone changed to Omnicef continue for 5 more days to finish a seven-day course Incentive spirometry. Oxygen by nasal cannula, titrate for O2 sat duration more than 92%. ABG followed and hypercapnia has improved CO2 now 56 from 89, pH is improved 7.41 She is to follow-up with pulmonology as outpatient and have sleep study performed Chest x-ray on 08/02-Improved aeration of the lung since the prior chest x-ray. (2) Pneumonia Current Visit: Yes Status: Suspected Assessment and Plan: Antibiotics as above with Omnicef to finish the course azithromycin was discontinued as she received 3 days urine antigens- negative sputum cx - pending ABG and chest x-ray as above with improvement (3) COPD exacerbation Current Visit: Yes Status: Acute Assessment and Plan: current everyday smoker. was counseled management as above (4) Bimalleolar fracture of left ankle Current Visit: Yes Status: Acute Assessment and Plan: Recommendation by geodetic technician team. Patient is scheduled to follow-up with their office on Saturday08/05/18. -Elevate bilateral lower extremities -Non-weight bearing bilateral lower extremities -management as per podiatry -DVT prophylaxis on discharge as she is high risk (5) Transaminitis Current Visit: Yes Status: Acute Assessment and Plan: Most likely secondary to hepatic steatosis GI consulted recommendation appreciated. Hepatitis profile negative. Liver US hyperechoic inhomogeneous liver but no focal abnormality. CT A/P showed fatty liver. AMA negative Antimitochondrial antibodies 5.8 F actin IgG 6 Hepatitis serology negative Lifestyle modification as per gastroenterology recommendations and discussions with the patient. We will continue to follow liver function, trending down. (6) CHF (congestive heart failure) Current Visit: Yes Status: Chronic Assessment and Plan: Patient is euvolemic. continue with home lasix and lisinopril Fluid restriction to 1.5 L a day. TTE Impressions: LVEF 60%. Mild left ventricular diastolic dysfunction. Normal right ventricular structure and function. Mild tricuspid regurgitation. Mild pulmonary hypertension. There is a trivial pericardial effusion present. There is no echocardiographic evidence of tamponade. (7) Hyperglycemia Current Visit: Yes Status: Acute Assessment and Plan: likely due steroids. Continue with insulin sliding scale and adjust as per fingersticks a1c 6.4 Was counseled on diet and nutrition (8) Obesity (BMI 35.0-39.9 without comorbidity) Current Visit: Yes Status: Acute Assessment and Plan: was counseled on diet and nutrition (9) DVT prophylaxis Current Visit: Yes Status: Acute Assessment and Plan: lovenox - Time Spent with Patient Total time spent is greater than 50% in coordination of care (as documented) at patient's floor/unit and/or counseling patient: Internal Medicine: Result - Labs CBC & Chem 7: 08/02/18 02:22 08/02/18 02:22 Labs: Short CBC 08/02/18 Range/Units 02:22 WBC 6.6 (4.3-11.1) K/mcL Hgb 13.3 (11.5-15.4) g/dL Hct 41.5 (35.3-44.9) % Plt Count 131 L (140-400) K/mcL BMP 08/02/18 02:22 Sodium 138 Potassium 4.3 Chloride 99 Carbon Dioxide 33 H BUN 20 Creatinine 0.83 Glucose 161 H Calcium 8.6 - ABG Interpretation ABG results: ABG ABG pH 7.41 pH Units (7.32-7.45) 08/02/18 08:43 ABG pCO2 56 mmHg (35-45) H 08/02/18 08:43 ABG pO2 66 mmHg (85-104) L 08/02/18 08:43 ABG O2 Saturation 92 % (95-98) L 08/02/18 08:43 PT/INR, D-dimer PT 14.0 Seconds (9.4-12.1) H 07/31/18 13:28 - Impressions Impressions Chest X-Ray 08/02/18 04:00 IMPRESSION: Improved aeration of the lung since the prior chest x-ray. D/ / Jose Rizo MD / Jsoe Rizo MD Interpreting Provider: Jose Rizo MD Consult Discharge Plan - Plan Referrals: Radha Garza MD [Primary Care Provider] - Jamie Gamboa CNP [Advanced Practice Nurse] - (sent web request on 07-30-18 @ [phone]) (2) Pneumonia Qualifiers: Pneumonia type: due to unspecified organism Laterality: bilateral Lung location: lower lobe of lung Qualified Code(s): J18.1 - Lobar pneumonia, unspecified organism (4) Bimalleolar fracture of left ankle Qualifiers: Encounter type: initial encounter Fracture type: closed Qualified Code(s): S82.842A - Displaced bimalleolar fracture of left lower leg, initial encounter for closed fracture (6) CHF (congestive heart failure) Qualifiers: Heart failure type: diastolic Heart failure chronicity: chronic Qualified Code(s): I50.32 - Chronic diastolic (congestive) heart failure
[2018-08-02 11:41] LABS: Myeloperoxidase Ab 0 AU/mL (0-19); Serine Protease-3 Antibody 0 AU/mL (0-19)
[2018-08-02] MEDS: *HR* HYDROcodone/Acet 5/325 mg TABLET PO PRN ×2 (12:43→20:32)
[2018-08-02] MEDS: traMADol 50 MG TABLET PO PRN (16:01)
[2018-08-02] MEDS: Cefdinir 300 MG CAPSULE PO SCH (20:34)
[2018-08-02] MEDS: Budesonide/Formoterol 160/4.5 1 PUFF INH IH SCH (21:38)
[2018-08-03] MEDS: traMADol 50 MG TABLET PO PRN ×2 (00:38→20:56)
[2018-08-03] MEDS: Ipratropium/Albuterol Neb 3 ML IH SCH ×4 (03:31→21:01)
[2018-08-03] MEDS: *HR* Enoxaparin 40 MG/0.4 ML SYRINGE SQ SCH (05:30)
[2018-08-03] MEDS: Insulin LISPRO 300 UNITS/3 ML VIAL SQ SCH ×3 (09:04→17:41)
[2018-08-03] MEDS: Furosemide 40 MG TABLET PO SCH (09:09)
[2018-08-03] MEDS: GuaiFENesin/Dextromethorphan TABLET PO SCH ×2 (09:09→20:56)
[2018-08-03] MEDS: predniSONE 20 MG TABLET PO SCH (09:09)
[2018-08-03] MEDS: Cefdinir 300 MG CAPSULE PO SCH ×2 (09:10→20:56)
[2018-08-03] MEDS: *HR* HYDROcodone/Acet 5/325 mg TABLET PO PRN (09:21)
[2018-08-03] MEDS: Budesonide/Formoterol 160/4.5 1 PUFF INH IH SCH ×2 (09:40→21:02)
[2018-08-03 10:39] LABS: Albumin 2.7 g/dL (3.5-5.7); Albumin/Globulin Ratio 1.2 (1.1-2.2); Bilirubin,Direct 0.1 mg/dL (0.0-0.2); Bilirubin,Indirect 0.5 mg/dL (0.0-1.2); Bilirubin,Total 0.6 mg/dL (0.3-1.0); Globulin 2.2 g/dL (2.4-3.5); Total Protein 4.9 g/dL (6.4-8.9)
--- NOTE | 2018-08-03 12:04 | Podiatry Progress Note ---
Date of Encounter: 08/03/18 Time of Encounter: 10:45 Subjective Interval history: s/p b/l ankle ORIF. patient in bed when I came in and she immediately told me to "get out." upon speaking to her further she tells me she is not having any pain. family member present says they are waiting on insurance and group home placement. says patient seems to be doing fine. Upon physical exam no pain elicited with calf squeeze bilateral. Posterior splint bandaging is clean dry and intact. Capillary refill time intact to digits bilateral. Discussed course for recovery with patient and family member. Discussed nonweightbearing to bilateral lower extremities and essentially bed rest and transport with use of a wheelchair. Awaiting group home placement. She will need to be on DVT prophylaxis when she is discharged. Elevation of the legs. Follow-up in the office with telecommunications linesworker a week after discharge. Objective - Vital Signs Vital Signs: Vital Signs Temp Pulse Resp BP Pulse Ox 08/03/18 09:40 20 92 08/03/18 07:10 98.5 F 68 14 114/64 92 08/03/18 04:49 97.8 F 75 18 108/64 94 08/03/18 03:33 16 94 08/03/18 00:37 98.6 F 72 16 102/64 94 08/02/18 21:41 16 94 08/02/18 19:26 98.0 F 72 18 110/61 96 08/02/18 15:53 18 91 08/02/18 15:33 98.2 F 70 19 118/65 92 Intake and Output 08/02/18 08/03/18 08/03/18 23:59 07:59 15:59 Intake Total 240 / 240 500 / 500 Output Total 1375 / 1375 450 / 450 Balance -1135 / -1135 50 / 50 Intake: Oral 240 / 240 500 / 500 Output: Catheter 1375 / 1375 450 / 450 Other: Meal Dinner Percent of Meal Consumed 40% Stool Size Smear Stool Consistency soft formed Stool Color Brown # Bowel Movements 1 Weight 92.2 kg Blood Glucose* 94 76 Patient Weight 08/03/18 23:59 Weight 92.2 kg - Lab Result Diagrams: 08/02/18 02:22 08/02/18 02:22 Labs: Abnormal lab results Plt Count 131 K/mcL (140-400) L 08/02/18 02:22 Lymphocytes # 0.5 K/mcL (0.6-4.6) L 08/01/18 03:12 Nucleated RBCs/100 WBC 0.2 /100 WBC (0) H 08/01/18 03:12 PT 14.0 Seconds (9.4-12.1) H 07/31/18 13:28 ABG pCO2 56 mmHg (35-45) H 08/02/18 08:43 ABG pO2 66 mmHg (85-104) L 08/02/18 08:43 ABG HCO3 35 mEq/L (21-27) H 08/02/18 08:43 ABG Total CO2 37 mEq/L (20-26) H 08/02/18 08:43 ABG O2 Saturation 92 % (95-98) L 08/02/18 08:43 ABG Base Excess 8 mEq/L (-2 to 3) H 08/02/18 08:43 Carbon Dioxide 33 mEq/L (23-29) H 08/02/18 02:22 Glucose 161 mg/dL (70-105) H 08/02/18 02:22 Hemoglobin A1c 6.4 % (-5.6) H 08/01/18 03:12 Phosphorus 2.5 mg/dL (2.7-4.5) L 08/01/18 03:12 GGT 26 Units/L (1-24) H 07/29/18 01:43 ALT 104 Units/L (7-52) H 08/03/18 09:50 Ammonia 59 mcmol/L (16-53) H 07/28/18 17:00 Serum Total Protein 4.9 g/dL (6.4-8.9) L 08/03/18 09:50 Albumin 2.7 g/dL (3.5-5.7) L 08/03/18 09:50 Globulin 2.2 g/dL (2.4-3.5) L 08/03/18 09:50 Salicylates < 2.5 mg/dL (15.0-30.0) L 07/29/18 01:43 Acetaminophen < 10 mcg/mL (10-20) L 07/29/18 01:43 Microbiology, Last 48 Hours 07/29/18 01:43 Blood Culture - Final Peripheral Venipuncture No growth. Final report. 07/29/18 01:43 Blood Culture - Final Peripheral Venipuncture No growth. Final report. 08/02/18 21:15 Urine Culture - Preliminary Urine,Zamudio Port Culture is incubating. 08/01/18 16:24 Legionella Antigen - Final Urine,Clean Catch Streptococcus pneumoniae Antigen (M - Final Consult Discharge Plan - Plan Referrals: Radha Garza MD [Primary Care Provider] - Jamie Gamboa CNP [Advanced Practice Nurse] - (sent web request on 07-30-18 @ [phone])
--- NOTE | 2018-08-03 14:02 | Internal Med Progress Note ---
Hospitalist Progress Note - Encounter Date of Encounter: 08/03/18 Time of Encounter: 08:00 - Subjective Interval History: Patient was seen and examined at bedside. No complaints currently. Frustrated that she has to be bedbound. I discussed that it is podiatry's recommendations for her as she recently had bilateral surgery on her lower extremities. All questions answered. Respiratory status is improved. Denies fever, chills, nausea, vomiting, diarrhea. - Exam Vitals: Temp Pulse Resp BP Pulse Ox 97.7 F 68 12 110/69 95 08/03/18 12:19 08/03/18 12:19 08/03/18 12:19 08/03/18 12:19 08/03/18 12:19 Exam: Vitals: Reviewed. General: Obese, Alert and oriented x4. NAD, speaks in full sentences Cardiovascular: RRR, normal S1 & S2, no rubs, murmurs or gallops. No JVD. Pulse regular. Lungs: distant heart sounds secondary to body habitus, CTA b/l, no wheezes or crackles. Abdomen: Obese, soft, non-tender, no rigidity. Extremities: b/l extremities wrapped Neurological: no focal deficit, wiggles toes. - Assessment and Plan (1) Acute respiratory failure with hypoxia and hypercarbia Current Visit: Yes Status: Acute Assessment and Plan: Continue bronchodilators as scheduled. Continue with steroid taper Omnicef continue for 5 more days (day2) Incentive spirometry. Oxygen by nasal cannula, titrate for O2 sat duration more than 92%. ABG followed and hypercapnia has improved CO2 now 56 from 89, pH is improved 7.41 She is to follow-up with pulmonology as outpatient and have sleep study performed Chest x-ray on 08/02-Improved aeration of the lung since the prior chest x-ray. (2) Pneumonia Current Visit: Yes Status: Suspected Assessment and Plan: Antibiotics as above with Omnicef to finish the course azithromycin was discontinued as she received 3 days urine antigens- negative sputum cx - pending ABG and chest x-ray as above with improvement (3) COPD exacerbation Current Visit: Yes Status: Acute Assessment and Plan: current everyday smoker. was counseled management as above (4) Bimalleolar fracture of left ankle Current Visit: Yes Status: Acute Assessment and Plan: Recommendation by micro computer data processor team. Patient is scheduled to follow-up with their office on Saturday08/05/18. -Elevate bilateral lower extremities -Non-weight bearing bilateral lower extremities -management as per podiatry -DVT prophylaxis on discharge as she is high risk (5) Transaminitis Current Visit: Yes Status: Acute Assessment and Plan: Most likely secondary to hepatic steatosis GI consulted recommendation appreciated. Hepatitis profile negative. Liver US hyperechoic inhomogeneous liver but no focal abnormality. CT A/P showed fatty liver. AMA negative Antimitochondrial antibodies 5.8 F actin IgG 6 Hepatitis serology negative Lifestyle modification as per gastroenterology recommendations and discussions with the patient. We will continue to follow liver function, trending down. (6) CHF (congestive heart failure) Current Visit: Yes Status: Chronic Assessment and Plan: Patient is euvolemic. continue with home lasix and lisinopril Fluid restriction to 1.5 L a day. TTE Impressions: LVEF 60%. Mild left ventricular diastolic dysfunction. Normal right ventricular structure and function. Mild tricuspid regurgitation. Mild pulmonary hypertension. There is a trivial pericardial effusion present. There is no echocardiographic evidence of tamponade. (7) Hyperglycemia Current Visit: Yes Status: Acute Assessment and Plan: likely due steroids. Continue with insulin sliding scale and adjust as per fingersticks a1c 6.4 Was counseled on diet and nutrition (8) Obesity (BMI 35.0-39.9 without comorbidity) Current Visit: Yes Status: Acute Assessment and Plan: was counseled on diet and nutrition (9) DVT prophylaxis Current Visit: Yes Status: Acute Assessment and Plan: lovenox - Time Spent with Patient Total time spent is greater than 50% in coordination of care (as documented) at patient's floor/unit and/or counseling patient: Internal Medicine: Result - Labs CBC & Chem 7: 08/02/18 02:22 08/02/18 02:22 Labs: Liver Function 08/03/18 Range/Units 09:50 Total Bilirubin 0.6 (0.3-1.0) mg/dL Direct Bilirubin 0.1 (0.0-0.2) mg/dL AST 13 (13-39) Units/L ALT 104 H (7-52) Units/L Alkaline Phosphatase 50 (34-104) Units/L Albumin 2.7 L (3.5-5.7) g/dL - ABG Interpretation ABG results: ABG ABG pH 7.41 pH Units (7.32-7.45) 08/02/18 08:43 ABG pCO2 56 mmHg (35-45) H 08/02/18 08:43 ABG pO2 66 mmHg (85-104) L 08/02/18 08:43 ABG O2 Saturation 92 % (95-98) L 08/02/18 08:43 PT/INR, D-dimer PT 14.0 Seconds (9.4-12.1) H 07/31/18 13:28 Consult Discharge Plan - Plan Referrals: Radha Garza MD [Primary Care Provider] - Jamie Gamboa CNP [Advanced Practice Nurse] - (sent web request on 07-30-18 @ 2021) (2) Pneumonia Qualifiers: Pneumonia type: due to unspecified organism Laterality: bilateral Lung location: lower lobe of lung Qualified Code(s): J18.1 - Lobar pneumonia, unspecified organism (4) Bimalleolar fracture of left ankle Qualifiers: Encounter type: initial encounter Fracture type: closed Qualified Code(s): S82.842A - Displaced bimalleolar fracture of left lower leg, initial encounter for closed fracture (6) CHF (congestive heart failure) Qualifiers: Heart failure type: diastolic Heart failure chronicity: chronic Qualified Code(s): I50.32 - Chronic diastolic (congestive) heart failure
[2018-08-04] MEDS: Ipratropium/Albuterol Neb 3 ML IH SCH ×3 (04:16→15:32)
[2018-08-04] MEDS: *HR* Enoxaparin 40 MG/0.4 ML SYRINGE SQ SCH (05:35)
[2018-08-04] MEDS: traMADol 50 MG TABLET PO PRN (05:39)
[2018-08-04 09:26] LABS: Hematocrit 44.7 % (35.3-44.9); Mean Corpuscular HGB Conc 31.3 g/dL (31.6-35.5); Mean Corpuscular Hemoglobin 28.9 pg (28.0-33.3); Mean Corpuscular Volume 92.2 fL (83.0-100.0); Platelet Count 146 K/mcL (140-400); Red Blood Count 4.85 M/mcL (3.82-4.97)
[2018-08-04 09:38] LABS: BUN/Creatinine Ratio 38 (6-26); Blood Urea Nitrogen 23 mg/dL (8-23); Calcium 8.2 mg/dL (8.6-10.3); Carbon Dioxide 32 mEq/L (23-29); Chloride 100 mEq/L (98-107); Glucose 102 mg/dL (70-105); Osmolality,Calculated 288 (280-300); Sodium 137 mEq/L (136-145); eGFR For Non-African Americans > 60 (> 60)
[2018-08-04] MEDS: Insulin LISPRO 300 UNITS/3 ML VIAL SQ SCH ×3 (09:57→17:23)
[2018-08-04] MEDS: predniSONE 20 MG TABLET PO SCH (09:57)
[2018-08-04] MEDS: Furosemide 40 MG TABLET PO SCH (09:57)
[2018-08-04] MEDS: GuaiFENesin/Dextromethorphan TABLET PO SCH (09:57)
[2018-08-04] MEDS: Cefdinir 300 MG CAPSULE PO SCH (09:57)
[2018-08-04] MEDS: Budesonide/Formoterol 160/4.5 1 PUFF INH IH SCH (10:23)
--- NOTE | 2018-08-04 14:24 | Discharge Summary ---
- NOTES TO OUTPATIENT PROVIDER Notes to Outpatient Provider: follow A1c in 3 months - it was 6.4 on august 01. follow with podiatry, Gi and pulmonology. LFTs in 1 week Orders not resulted at time of discharge: Pending orders 07/30/18 11:19 US anesthesia pain block [US] Routine 07/31/18 13:28 Liver Fibrosis for NAFLD Routine 08/01/18 15:37 Culture,Sputum with Gram Stain [RM] Stat 08/05/18 04:00 BMP [Basic Metabolic Panel] AM 0400 CBC no Diff [Complete Blood Count w/o Diff] [HEME] AM 0400 Date of Encounter: 08/04/18 Time of Encounter: 14:19 - Discharge Diagnosis (1) Bimalleolar fracture of left ankle Priority: Primary Status: Acute Qualifiers: Encounter type: initial encounter Fracture type: closed Qualified Code(s): S82.842A - Displaced bimalleolar fracture of left lower leg, initial encounter for closed fracture (2) Acute respiratory failure with hypoxia and hypercarbia Priority: Secondary Status: Acute (3) Pneumonia Priority: Secondary Status: Suspected Qualifiers: Pneumonia type: due to unspecified organism Laterality: bilateral Lung location: lower lobe of lung Qualified Code(s): J18.1 - Lobar pneumonia, unspecified organism (4) COPD exacerbation Priority: Secondary Status: Acute (5) Transaminitis Priority: Secondary Status: Acute (6) CHF (congestive heart failure) Priority: Secondary Status: Chronic Qualifiers: Heart failure type: diastolic Heart failure chronicity: chronic Qualified Code(s): I50.32 - Chronic diastolic (congestive) heart failure (7) Hyperglycemia Priority: Secondary Status: Acute (8) Obesity (BMI 35.0-39.9 without comorbidity) Priority: Secondary Status: Acute (9) DVT prophylaxis Priority: Secondary Status: Acute Hospital course: " Ms. Navarrete is a 72 year old female who was transferred to our ER from [facility]. She reportedly fell tonight on to the bathroom floor and broke both ankles (tib/fib). ER contacted Dr. Escalona for consultation, but he deferred to Dr. Stewart from podiatry. Patient was then admitted to hospitalist service with a podiatry/orthopedic consultation. Upon my assessment of the patient, patient is somnolent, confused, and a very poor historian. I summoned her daughter to the bedside to provide a history. Patient reportedly actually had a syncopal spell today at home. Her daughter found her on the bathroom floor with both ankles projecting outward and patient landed on her knees. There was no known reported head trauma. However, she had multiple scans in the ER which were negative except for the ankle fractures. Routine labs revealed significant transaminitis on CT of the chest concerning for pneumonia. According to daughter, patient has severe COPD requiring oxygen. Patient was quite somnolent and difficult to arouse. I ordered a stat arterial blood gas, which confirmed respiratory acidosis. I therefore placed her on BiPAP, and we will repeat arterial blood gas in the morning. Regarding her transaminitis, patient does not drink alcohol. She has been using Tylenol for her joint aches and pains. I ordered a stat acetaminophen and salicylate level, both of which were undetectable. Patient and daughter both deny any trauma or injury to her liver or abdomen with today's fall. " Patient was admitted with above presentation on 07/28. my first encounter with the patient was on 08/01. Podiatry operated on the patient and she is s/p b/l ankle ORIF. As per podiatry she is to be nonweightbearing to bilateral lower extremities, Elevate bilateral lower extremities . And it was recommended for her to be discharged on DVT prophylaxis. Follow-up appointment was provided with the podiatry team. Her hospitalization she was treated for COPD exacerbation requiring NIMV. ABG an d CXR showed improvement. She was transitioned to the steroid tapers on discharge. She was transitioned to oral antibiotics and to complete the course on discharge. continue with home oxygen. needs to follow up with pulm as OP. on admission she was found to have transaminitis- Likely due to fatty liver. On admission TB 0.7, AST 749, ALT 1065, alk phos 111. transaminitis trended down ( AST resolved) (ALT 104) Hepatitis profile negative.Liver US hyperechoic inhomogeneous liver but no focal abnormality. CT A/P showed fatty liver. Gi was consulted and recommended OP follow up, series of labs sent by GI so far negative. - life style modification was provided by the GI team for the patient. 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 to have A1c re checked in 3 months. i discussed with patient she would like to try with diet and if she continues to have elevated A1c she will consider medication. for PCP to continue to monitor finger sticks and consider starting oral hypoglycemics - as per my conversation with patient and family at bedside she will try diet for now and follow up with her PCP. family at bedside encouraged her to be compliant with diet. follow LFTS in 1 week and consider stopping statins if the LFTS trend up again. follow renal functions in 1 week. follow with thyroid US as she reports she has it performed before for enlarged thyroid by her PCP. CT head: IMPRESSION: No acute intracranial abnormality. TTE:LVEF 60%. Mild left ventricular diastolic dysfunction. Normal right ventricular structure and function. Mild tricuspid regurgitation. Mild pulmonary hypertension. There is a trivial pericardial effusion present. There is no echocardiographic evidence of tamponade. Ct chest, abdomen and pelvis IMPRESSION: Age-indeterminate nondisplaced fracture of the sacrum. Correlate for point tenderness. Dilated main pulmonary artery which can be seen with pulmonary hypertension. Bilateral airspace disease could represent atelectasis or pneumonia. Enlarged and heterogeneous thyroid. Consider ultrasound for further evaluation. Mediastinal lymphadenopathy is unchanged from March of 2013. Mild hepatic steatosis. CXR on 08/02-Improved aeration of the lung since the prior chest x-ray. LIFESTYLE MODIFICATION: DIETARY ADVISE: Gradual weight loss of 7-10%. Moderate caloric restriction of 500-700 Kcal/day Eliminate or significantly reduce saturated fatty acids and high fructose corn syrup from diet Consider omega-3 fatty acids supplements Consider regular coffee consumption, 2-3 cups/day if can be tolerated EXERCISE ADVISE: Moderate exercise on treadmill, elliptical or in a pool, 4-5/week for 30-45 minutes. Resistance training 3 times/week Pharmacotherapy: Vitamin E 800 IU daily (keeping in mind that it has been shown to increase all causes of mortality and may be linked to prostate cancer) Pioglitazone 30-45 mg/day (can cause weight gain, bladder cancer, can cause cadiovascular side effects) Statins are safe to use, and also improve portal hypertension and decrease risk of HCC. Control of the components of metabolic syndrome Discharge discussed with: patient, family, nurse, social work, case management, business process consultant Time spent discussing smoking cessation with patient: more than 10 minutes - Time Spent with Patient Total time spent providing and/or coordinating discharge services: Time spent: Greater than 30 minutes (50) - Discharge Medications Prescriptions: New Ipratropium/Albuterol Neb [Duoneb] 3 ml IH [id number] #30 inhsol Budesonide/Formoterol 160/4.5 [Symbicort 160/4.5] 1 puff IH BIDR #1 inh Cefdinir [Omnicef] 300 mg PO BID 4 Days #8 capsule predniSONE [PredniSONE] 10 mg PO DAILY #10 tablet Enoxaparin [Lovenox] 30 mg SQ Q12HR #60 syr Continue Aspirin Enteric Coated [Aspirin EC] 81 mg PO DAILY Aspirin/Acetaminophen/Caffeine [Headache 250-250-65 mg Tablet] 1 tab PO QID PRN PRN Reason: Headache Atorvastatin [Lipitor] 20 mg PO HS Docusate [Colace] 100 mg PO QPM PRN PRN Reason: Constipation Escitalopram [Lexapro] 20 mg PO DAILY Furosemide [Lasix] 40 mg PO DAILY Guaifenesin [Mucinex] 1,200 mg PO BID PRN PRN Reason: Congestion Ibuprofen [Ibu] 800 mg PO TID PRN PRN Reason: Pain Lansoprazole [Prevacid] 30 mg PO DAILY Lisinopril [Zestril] 10 mg PO DAILY Montelukast [Singulair] 10 mg PO DAILY Nitroglycerin [Nitrostat] 0.4 mg SL AD PRN PRN Reason: Chest Pain Potassium Chloride [K-Tab ER] 20 meq PO DAILY Simethicone [Gas-X] 80 mg PO PER PKG DI HYDROcodone/Acet 5/325 mg [Amity 5-325 mg] 1 tab PO TID PRN 1 Days #3 tablet PRN Reason: Pain Home Medications: Aspirin Enteric Coated [Aspirin EC] 81 mg PO DAILY 07/29/18 [History] Aspirin/Acetaminophen/Caffeine [Headache 250-250-65 mg Tablet] 1 tab PO QID PRN 07/29/18 [History] Atorvastatin [Lipitor] 20 mg PO HS 07/29/18 [History] Docusate [Colace] 100 mg PO QPM PRN 07/29/18 [History] Escitalopram [Lexapro] 20 mg PO DAILY 07/29/18 [History] Furosemide [Lasix] 40 mg PO DAILY 07/29/18 [History] Guaifenesin [Mucinex] 1,200 mg PO BID PRN 07/29/18 [History] Ibuprofen [Ibu] 800 mg PO TID PRN 07/29/18 [History] Lansoprazole [Prevacid] 30 mg PO DAILY 07/29/18 [History] Lisinopril [Zestril] 10 mg PO DAILY 07/29/18 [History] Montelukast [Singulair] 10 mg PO DAILY 07/29/18 [History] Nitroglycerin [Nitrostat] 0.4 mg SL AD PRN 07/29/18 [History] Potassium Chloride [K-Tab ER] 20 meq PO DAILY 07/29/18 [History] Simethicone [Gas-X] 80 mg PO PER PKG DI 07/29/18 [History] Budesonide/Formoterol 160/4.5 [Symbicort 160/4.5] 1 puff IH BIDR #1 inh 08/04/18 [Rx] Cefdinir [Omnicef] 300 mg PO BID 4 Days #8 capsule 08/04/18 [Rx] Enoxaparin [Lovenox] 30 mg SQ Q12HR #60 syr 08/04/18 [Rx] HYDROcodone/Acet 5/325 mg [Amity 5-325 mg] 1 tab PO TID PRN 1 Days #3 tablet 08/04/18 [Rx] Ipratropium/Albuterol Neb [Duoneb] 3 ml IH [id number] #30 inhsol 08/04/18 [Rx] predniSONE [PredniSONE] 10 mg PO DAILY #10 tablet 08/04/18 [Rx] Allergies/Adverse Reactions: Allergy/AdvReac Type Severity Reaction Status Date / Time No Known Allergies Allergy Verified 07/28/18 17:51 Date of admission: 07/29/18 01:10 Primary care physician: Radha Garza MD Consults: 07/28/18 17:30 Consult to Podiatry [CONS] Stat Consulting Provider: Pod[facility] Reason for Consult: BL tib/fib fx involving BL ankle mortise Time Notified: 17:31 Call Completed: Yes 07/29/18 00:59 Consult to Physician [CONS] Routine Consulting Provider: Kike Stewart Reason for Consult: bilateral ankle fractures Call Completed: Yes 07/29/18 12:17 Consult to Gastroenterology [CONS] Routine Consulting Provider: Gastroenterjeronimo Rosa Reason for Consult: eevated ast/alt Call Completed: Yes 07/30/18 09:02 Consult to Occupational Therapy [CONS] Routine Comment: Evaluate, develop and implement POC Reason for Consult: fracture Does patient have active BEDREST order?: No Is patient medically & hemodynamically stable?: Yes Patient assessed for mobility or mobilized this visit?: Yes Consult to Physical Therapy [CONS] Routine Comment: Evaluate, develop and implement POC Reason for Consult: fracture Does patient have active BEDREST order?: No Is patient medically & hemodynamically stable?: Yes Patient assessed for mobility or mobilized this visit?: Yes 07/30/18 13:54 Consult to Physical Therapy [CONS] Routine Comment: Evaluate, develop and implement POC Reason for Consult: non-weight bearing Does patient have active BEDREST order?: No Is patient medically & hemodynamically stable?: Yes 07/30/18 13:55 Consult to Occupational Therapy [CONS] Routine Comment: Evaluate, develop and implement POC Reason for Consult: non-weight bearing Does patient have active BEDREST order?: No Is patient medically & hemodynamically stable?: Yes 07/31/18 11:23 Consult to Assembler Body [CONS] Routine Reason for SW Consult: POSIBLE DISCHARGE NEEDS FOR PHYSICAL THERPAY - Constitutional Vitals: Temp Pulse Resp BP Pulse Ox 97.4 F L 76 18 108/72 94 08/04/18 11:24 08/04/18 11:24 08/04/18 11:24 08/04/18 11:24 08/04/18 11:24 Exam: Vitals: Reviewed. General: Obese, Alert and oriented x4. NAD, speaks in full sentences Cardiovascular: RRR, normal S1 & S2, no rubs, murmurs or gallops. No JVD. Pulse regular. Lungs: distant heart sounds secondary to body habitus, CTA b/l, no wheezes or crackles. Abdomen: Obese, soft, non-tender, no rigidity. Extremities: b/l extremities wrapped Neurological: no focal deficit, wiggles toes. - Patient Status Disposition: Transfer SNF Condition: Serious Functional capacity at discharge: bed bound (until cleared by podiatry, NWB bilateral lower extremity) Overall status at discharge: patient is progressing back to baseline - Ambulatory Orders Ambulatory Orders: US thyroid [US] Time Frame: 1 Week, Facility: [facility], Location: Radiology Basic Metabolic Panel [CHEM] Time Frame: 1 Week, Facility: [facility], Location: Lab Complete Blood Count w/o Diff [HEME] Time Frame: 1 Week, Facility: [facility], Location: Lab Hepatic Panel [CHEM] Time Frame: 1 Week, Facility: [facility], Location: Lab - Discharge Instructions Follow Up With: Radha Garza MD [Primary Care Provider] - Jamie Gamboa CNP [Advanced Practice Nurse] - (sent web request on 07-30-18 @ 1607) Santo Pink MD [Partnered Physician] - 08/06/18 3:00 pm - Diet and Activity Activity: other (non weight baring at all until cleared by podiatry, elevate legs ) Diet: diabetic diet, low salt diet
[2018-08-04] MEDS: *HR* HYDROcodone/Acet 5/325 mg TABLET PO PRN (14:30)
--- NOTE | 2018-08-04 15:40 | Physician Discharge Referral ---
[facility] Referral Info Provider in Charge after Transfer: PCP - Diagnosis (1) Bimalleolar fracture of left ankle Priority: Primary Status: Acute (2) Acute respiratory failure with hypoxia and hypercarbia Priority: Secondary Status: Acute (3) Pneumonia Priority: Secondary Status: Suspected (4) COPD exacerbation Priority: Secondary Status: Acute (5) Transaminitis Priority: Secondary Status: Acute (6) CHF (congestive heart failure) Priority: Secondary Status: Chronic (7) Hyperglycemia Status: Acute (8) Obesity (BMI 35.0-39.9 without comorbidity) Status: Acute (9) DVT prophylaxis Status: Acute - Transfer Medications Prescriptions: Ipratropium/Albuterol Neb [Duoneb] 3 ml IH [id number] #30 inhsol Enoxaparin [Lovenox] 30 mg SQ Q12HR #60 syr Budesonide/Formoterol 160/4.5 [Symbicort 160/4.5] 1 puff IH BIDR #1 inh Cefdinir [Omnicef] 300 mg PO BID 4 Days #8 capsule HYDROcodone/Acet 5/325 mg [Palmer 5-325 mg] 1 tab PO TID PRN 1 Days #3 tablet PRN Reason: Pain predniSONE [PredniSONE] 10 mg PO DAILY #10 tablet Home Medications: Aspirin Enteric Coated [Aspirin EC] 81 mg PO DAILY 07/29/18 [History] Aspirin/Acetaminophen/Caffeine [Headache 250-250-65 mg Tablet] 1 tab PO QID PRN 07/29/18 [History] Atorvastatin [Lipitor] 20 mg PO HS 07/29/18 [History] Docusate [Colace] 100 mg PO QPM PRN 07/29/18 [History] Escitalopram [Lexapro] 20 mg PO DAILY 07/29/18 [History] Furosemide [Lasix] 40 mg PO DAILY 07/29/18 [History] Guaifenesin [Mucinex] 1,200 mg PO BID PRN 07/29/18 [History] Ibuprofen [Ibu] 800 mg PO TID PRN 07/29/18 [History] Lansoprazole [Prevacid] 30 mg PO DAILY 07/29/18 [History] Lisinopril [Zestril] 10 mg PO DAILY 07/29/18 [History] Montelukast [Singulair] 10 mg PO DAILY 07/29/18 [History] Nitroglycerin [Nitrostat] 0.4 mg SL AD PRN 07/29/18 [History] Potassium Chloride [K-Tab ER] 20 meq PO DAILY 07/29/18 [History] Simethicone [Gas-X] 80 mg PO PER PKG DI 07/29/18 [History] Budesonide/Formoterol 160/4.5 [Symbicort 160/4.5] 1 puff IH BIDR #1 inh 08/04/18 [Rx] Cefdinir [Omnicef] 300 mg PO BID 4 Days #8 capsule 08/04/18 [Rx] Enoxaparin [Lovenox] 30 mg SQ Q12HR #60 syr 08/04/18 [Rx] HYDROcodone/Acet 5/325 mg [Palmer 5-325 mg] 1 tab PO TID PRN 1 Days #3 tablet 08/04/18 [Rx] Ipratropium/Albuterol Neb [Duoneb] 3 ml IH [id number] #30 inhsol 08/04/18 [Rx] predniSONE [PredniSONE] 10 mg PO DAILY #10 tablet 08/04/18 [Rx] Allergies/Adverse Reactions: Allergy/AdvReac Type Severity Reaction Status Date / Time No Known Allergies Allergy Verified 07/28/18 17:51 - Respiratory Orders Smoking Cessation: Smoking cessation has been advised. For more information, call the [place] Tobacco Quit Line at 0-193-HUDE-NOW. - Lab Orders Lab Orders: Other (include drug levels w/frequency) (follow lFTS, CBC and BMP in 1 week. follow cxr in 7 days. follow finger sticks. she would like to follow with a diabetic diet regimen prior to starting oral hypoglycemics.) - Advance Directives Code Status: Full Code - Mobility Orders Bedrest, Other (none weight baring as per podiatry on bilateral lower extremity.) - Rehabiliation Orders Rehab Potential: Fair - Diet Orders No Added Salt (FRANCISCO JAVIER) (diabetic) CERTIFICATION: I certify that the transfer of the above named patient to an Extended Care Facility is necessary for the continuing treatment of the diagnosis listed. The above information is true and accurate reflection of patient's current condition. Confidential - Redisclosure prohibited without a patient's written consent.
--- NOTE | 2018-08-04 16:38 | Podiatry Progress Note ---
Date of Encounter: 08/04/18 Time of Encounter: 15:40 - Assessment and Plan (1) Bimalleolar fracture of left ankle Current Visit: Yes Status: Acute Assessment: -Posterior splint intact, no strike through noted, no swelling above or below splint -Cap refill immediate to all digits -Movement of toes noted -Splint removed -Ecchymosis noted medial and lateral aspects -No pain with calf squeeze -2/4 PT/DP pulse noted -Ulisses intact lateral aspect, edges well approximated, no odor, no drainage, no lymphangitis, no cellutlitls, no evidence of infection noted -Sutures medial aspect intact, edges well approximated, no odor, no drainage, no lymphangitis, no cellulitis, no evidence of infection Plan: -Site cleaned with peroxide and .9NS -Xeroform applied to surgical wounds bilaterally -Covered with 4x4s and kerlix -Posterior splint reapplied using cast padding stockinette, splint, and YIN -Elevate bilateral lower extremities -Non-weight bearing bilateral lower extremities -Patient instructed to report any pain that is not relieved with medication, swelling of digits, or toes becoming blueish or purple -Okay for patient to go to [facility] today -Follow up with Lashanda Cam CNP next week, call office for appointment Qualifiers: Encounter type: initial encounter Fracture type: closed Qualified Code(s): S82.842A - Displaced bimalleolar fracture of left lower leg, initial encounter for closed fracture (2) Closed fracture of right distal fibula Current Visit: Yes Status: Acute Assessment: -Posterior splint intact, no strike through noted, no swelling above or below splint -Cap refill immediate to all digits -Movement of toes noted -Splint removed -Ecchymosis noted medial aspect -No pain with calf squeeze -2/4 PT/DP pulse noted -[place] intact lateral aspect, edges well approximated, no odor, no drainage, no lymphangitis, no cellutlitls, no evidence of infection noted -Sutures medial aspect intact, edges well approximated, no odor, no drainage, no lymphangitis, no cellulitis, no evidence of infection Plan: -Site cleaned with peroxide and .9NS -Xeroform applied to surgical wounds bilaterally -Covered with 4x4s and kerlix -Posterior splint reapplied using cast padding stockinette, splint, and YIN -Elevate bilateral lower extremities -Non-weight bearing bilateral lower extremities -Patient instructed to report any pain that is not relieved with medication, swelling of digits, or toes becoming blueish or purple -Okay for patient to go to [facility] today -Follow up with Lashanda Cam CNP next week, call office for appointment Qualifiers: Encounter type: initial encounter Fracture morphology: unspecified fracture morphology Qualified Code(s): S82.831A - Other fracture of upper and lower end of right fibula, initial encounter for closed fracture Subjective Interval history: Post op day #5, 1. Open reduction with internal fixation of left bimalleolar ankle fracture, 2. Repair of syndesmosis left ankle by Dr. Richter on 07/30/2018 and ORIF right bimalleolar ankle fracture, ORIF syndesmosis by Dr. Khan on 07/30/2018. Patient is alert and oriented x 3, no acute distress noted, well nourished. Family at bedside. She denies any chest pain, shortness of breath, or calf pain. Patient denies any fever, chills, nausea, vomiting, or diarrhea. Bilateral posterior splints intact, and lower extremities elevated, no strike through noted. Objective - Vital Signs Vital Signs: Vital Signs Temp Pulse Resp BP Pulse Ox 08/04/18 11:24 97.4 F L 76 18 108/72 94 08/04/18 10:24 18 98 08/04/18 09:56 67 97 08/04/18 07:09 98.1 F 67 16 116/73 96 08/04/18 04:16 16 95 08/04/18 03:28 98.6 F 83 16 111/73 93 08/04/18 00:50 97.8 F 76 18 124/81 97 08/03/18 21:02 16 92 08/03/18 20:11 98.5 F 93 16 114/73 96 Intake and Output 08/04/18 08/04/18 08/04/18 07:59 15:59 23:59 Intake Total 150 / 150 480 / 480 Output Total 825 / 825 Balance -675 / -675 480 / 480 Intake: Oral 150 / 150 480 / 480 Output: Catheter 825 / 825 Other: Meal Lunch Percent of Meal Consumed 100% # Voids 1 Weight 92.38 kg Blood Glucose* 97 86 Patient Weight 08/04/18 23:59 Weight 92.38 kg - Exam Exam: Constitutional: Patient is alert and oriented x 3, no acute distress noted, well nourished Vascular: No swelling noted above or below posterior splints, cap refill immediate to all digits, no pain with manual compression/calf squeeze to bilateral calfs Neurological: Sensation intact, proprioception dorsiflexion/plantar flexion intact of bilateral hallux Dermatological: Posterior splints intact, no strike through noted, distal digits without swelling noted, no swelling above or below posterior splints - Lab Result Diagrams: 08/04/18 09:04 08/04/18 09:04 Labs: Abnormal lab results MCHC 31.3 g/dL (31.6-35.5) L 08/04/18 09:04 Lymphocytes # 0.5 K/mcL (0.6-4.6) L 08/01/18 03:12 Nucleated RBCs/100 WBC 0.2 /100 WBC (0) H 08/01/18 03:12 PT 14.0 Seconds (9.4-12.1) H 07/31/18 13:28 ABG pCO2 56 mmHg (35-45) H 08/02/18 08:43 ABG pO2 66 mmHg (85-104) L 08/02/18 08:43 ABG HCO3 35 mEq/L (21-27) H 08/02/18 08:43 ABG Total CO2 37 mEq/L (20-26) H 08/02/18 08:43 ABG O2 Saturation 92 % (95-98) L 08/02/18 08:43 ABG Base Excess 8 mEq/L (-2 to 3) H 08/02/18 08:43 Carbon Dioxide 32 mEq/L (23-29) H 08/04/18 09:04 BUN/Creatinine Ratio 38 (6-26) H 08/04/18 09:04 POC Glucose 187 mg/dL (70-99) H 08/03/18 20:11 Hemoglobin A1c 6.4 % (-5.6) H 08/01/18 03:12 Calcium 8.2 mg/dL (8.6-10.3) L 08/04/18 09:04 Phosphorus 2.5 mg/dL (2.7-4.5) L 08/01/18 03:12 GGT 26 Units/L (1-24) H 07/29/18 01:43 ALT 104 Units/L (7-52) H 08/03/18 09:50 Ammonia 59 mcmol/L (16-53) H 07/28/18 17:00 Serum Total Protein 4.9 g/dL (6.4-8.9) L 08/03/18 09:50 Albumin 2.7 g/dL (3.5-5.7) L 08/03/18 09:50 Globulin 2.2 g/dL (2.4-3.5) L 08/03/18 09:50 Salicylates < 2.5 mg/dL (15.0-30.0) L 07/29/18 01:43 Acetaminophen < 10 mcg/mL (10-20) L 07/29/18 01:43 Microbiology, Last 48 Hours 08/02/18 21:15 Urine Culture - Final Urine,[place] Yeast Species 07/29/18 01:43 Blood Culture - Final Peripheral Venipuncture No growth. Final report. 07/29/18 01:43 Blood Culture - Final Peripheral Venipuncture No growth. Final report. Consult Discharge Plan - Plan Referrals: Radha Garza MD [Primary Care Provider] - Jamie Gamboa CNP [Advanced Practice Nurse] - (sent web request on 07-30-18 @ [phone]) Prescriptions: Ipratropium/Albuterol Neb [Duoneb] 3 ml IH [id number] #30 inhsol Enoxaparin [Lovenox] 30 mg SQ Q12HR #60 syr Budesonide/Formoterol 160/4.5 [Symbicort 160/4.5] 1 puff IH BIDR #1 inh Cefdinir [Omnicef] 300 mg PO BID 4 Days #8 capsule HYDROcodone/Acet 5/325 mg [[place] 5-325 mg] 1 tab PO TID PRN 1 Days #3 tablet PRN Reason: Pain predniSONE [PredniSONE] 10 mg PO DAILY #10 tablet
[2018-08-04 17:25] VITALS: BP 107/67
[2018-08-05] MEDS ORDERED: predniSONE 20 MG TABLET PO SCH (09:00)
== END 2018-08-04 18:42 | DRG 492 ==
LOC: EMEROOARM 13:38 → 3NENU 13:38 → SUATTDRO 07-29 01:10 → 2NNU 07-29 18:36 → 3NENU 07-30 12:47
PROVIDERS: ADMIT Internal Medicine; ATTEND Internal Medicine

== ENCOUNTER 2021-02-03 19:48 | Inpatient (IN) ==
[2021-02-04] MEDS ORDERED: Naloxone 0.4 MG/ML INJ IVP PRN (00:35)
[2021-02-04] MEDS ORDERED: Ondansetron 4 MG/2 ML VIAL IVP PRN (00:35)
[2021-02-04] MEDS ORDERED: Melatonin 3 MG TABLET PO PRN (00:35)
[2021-02-04] MEDS ORDERED: *HR* Heparin 5,000 UNIT/ML VIAL IVP ONE (01:02)
[2021-02-04] MEDS ORDERED: *HR* Heparin 5,000 UNIT/ML VIAL IVP PRN ×2 (01:02)
[2021-02-04] MEDS ORDERED: Perflutren Lipid Microsphere 1.3 ML in 0.9 % Sodium Chloride 8.7 ML IVP PRN (01:04)
[2021-02-04 02:31] LABS: Alanine Aminotransferase 13 Units/L (7-52); Albumin 3.6 g/dL (3.5-5.7); Alkaline Phosphatase 77 Units/L (34-104); Aspartate Amino Transferase 20 Units/L (13-39); BUN/Creatinine Ratio 26 (6-26); Bilirubin,Total 0.7 mg/dL (0.3-1.0); Blood Urea Nitrogen 19 mg/dL (8-23); Calcium 8.8 mg/dL (8.6-10.3); Carbon Dioxide 31 mEq/L (23-29); Chloride 93 mEq/L (98-107); Globulin 3.5 g/dL (2.4-3.5); Glucose 85 mg/dL (70-105); Magnesium 1.6 mg/dL (1.6-2.6); Osmolality,Calculated 286 (280-300); Potassium 3.5 mEq/L (3.5-5.1); Sodium 137 mEq/L (136-145); Total Protein 7.1 g/dL (6.4-8.9); eGFR For African Americans > 60 (> 60); eGFR For Non-African Americans > 60 (> 60)
[2021-02-04] MEDS: Heparin 25,000UNIT/250ML 1/2NS 25,000 UNIT/250 ML IV.SOLN IVC SCH (03:09)
[2021-02-04] MEDS: Acetaminophen 325 MG TABLET PO PRN ×2 (03:12→19:20)
[2021-02-04 07:28] LABS: Basophils % 0.4 %; Eosinophils % 0.4 %; Hematocrit 50.1 % (35.3-44.9); Hemoglobin 15.8 g/dL (11.5-15.4); Immature Granulocytes % 0.5 % (0-4); Lymphocytes # 1.3 K/mcL (0.6-4.6); Lymphocytes % 13.1 %; Mean Corpuscular HGB Conc 31.5 g/dL (31.6-35.5); Mean Corpuscular Hemoglobin 28.3 pg (28.0-33.3); Mean Corpuscular Volume 89.6 fL (83.0-100.0); Mean Platelet Volume 10.6 fL (9.4-12.4); Monocytes # 0.8 K/mcL (0.0-1.3); Monocytes % 8.3 %; Neutrophils # 7.6 K/mcL (1.6-8.9); Platelet Count 157 K/mcL (140-400); Red Blood Count 5.59 M/mcL (3.82-4.97); Red Cell Distribution Width 14.3 % (11.5-14.5); Segmented Neutrophils % 77.3 %; White Blood Count 9.8 K/mcL (4.3-11.1)
[2021-02-04 07:43] LABS: INR 1.3
[2021-02-04] MEDS: Piperacillin/Tazobactam 3.375 GM in 0.9 % Sodium Chloride Mini Bag 100 ML IVPB SCH ×3 (08:31→23:16)
[2021-02-04 10:42] LABS: Bilirubin,Urine Small (Negative); Blood,Urine Large (Negative); Clarity,Urine Clear (Clear); Color,Urine Yellow (Yellow); Glucose,Urine (UA) Normal (Normal); Hyaline Casts,Urine Few per lpf (None Seen); Ketones,Urine 60 mg/dL (Negative); Leukocyte Esterase,Urine Trace (Negative); Mucus,Urine Few per lpf (None-Few); Nitrite,Urine Negative (Negative); Protein,Urine 70 mg/dL (Neg-Trace); RBC,Urine 50-100 per hpf (0-3); Specific Gravity,Urine 1.027 (1.010-1.025); Squamous Epithelial Cell,Urine Few per hpf (None-Few)
[2021-02-04] MEDS: *HR* HYDROcodone/Acet 5/325 mg TABLET PO PRN ×2 (13:47→23:16)
[2021-02-04] MEDS: Aspirin 81 MG TAB.CHEW PO SCH (14:36)
[2021-02-05 01:25] LABS: Basophils % 0.4 %; Eosinophils # 0.1 K/mcL (0.0-0.6); Hematocrit 49.5 % (35.3-44.9); Hemoglobin 15.8 g/dL (11.5-15.4); Immature Granulocytes % 0.6 % (0-4); Lymphocytes # 1.3 K/mcL (0.6-4.6); Lymphocytes % 13.3 %; Mean Corpuscular HGB Conc 31.9 g/dL (31.6-35.5); Mean Corpuscular Hemoglobin 28.4 pg (28.0-33.3); Mean Platelet Volume 10.6 fL (9.4-12.4); Monocytes # 0.9 K/mcL (0.0-1.3); Monocytes % 8.9 %; Neutrophils # 7.3 K/mcL (1.6-8.9); Platelet Count 145 K/mcL (140-400); Red Blood Count 5.56 M/mcL (3.82-4.97); Red Cell Distribution Width 14.5 % (11.5-14.5); Segmented Neutrophils % 75.8 %; White Blood Count 9.7 K/mcL (4.3-11.1)
[2021-02-05 01:35] LABS: BUN/Creatinine Ratio 25 (6-26); Blood Urea Nitrogen 21 mg/dL (8-23); Calcium 8.3 mg/dL (8.6-10.3); Carbon Dioxide 31 mEq/L (23-29); Chloride 93 mEq/L (98-107); Glucose 92 mg/dL (70-105); Osmolality,Calculated 283 (280-300); Potassium 3.1 mEq/L (3.5-5.1); Sodium 135 mEq/L (136-145); eGFR For African Americans > 60 (> 60); eGFR For Non-African Americans > 60 (> 60)
[2021-02-05] MEDS: Acetaminophen 325 MG TABLET PO PRN (02:03)
[2021-02-05] MEDS: Heparin 25,000UNIT/250ML 1/2NS 25,000 UNIT/250 ML IV.SOLN IVC SCH (02:05)
[2021-02-05] MEDS: *HR* HYDROcodone/Acet 5/325 mg TABLET PO PRN ×3 (05:45→16:03)
[2021-02-05] MEDS ORDERED: Potassium Chloride Elixir 20 MEQ/15 ML UDC PO ONE ×2 (07:20→10:45)
[2021-02-05] MEDS: Aspirin 81 MG TAB.CHEW PO SCH (09:10)
[2021-02-05] MEDS: Furosemide 40 MG TABLET PO SCH (09:10)
[2021-02-05] MEDS: Piperacillin/Tazobactam 3.375 GM in 0.9 % Sodium Chloride Mini Bag 100 ML IVPB SCH ×2 (09:11→15:51)
[2021-02-05] MEDS: Cholecalciferol (D-3) 1,000 UNIT (25MCG) TABLET PO SCH (09:16)
[2021-02-05] MEDS: *HR* Heparin 5,000 UNIT/ML VIAL SQ SCH (15:50)
[2021-02-06] MEDS: Piperacillin/Tazobactam 3.375 GM in 0.9 % Sodium Chloride Mini Bag 100 ML IVPB SCH ×2 (00:06→07:47)
[2021-02-06] MEDS: Acetaminophen 325 MG TABLET PO PRN ×2 (00:15→07:45)
[2021-02-06] MEDS ORDERED: Ketorolac 15 MG/ML VIAL IVP ONE (03:13)
[2021-02-06 05:16] LABS: Red Blood Count 5.73 M/mcL (3.82-4.97)
[2021-02-06 05:18] LABS: Basophils # 0.1 K/mcL (0.0-0.2); Basophils % 0.7 %; Eosinophils # 0.2 K/mcL (0.0-0.6); Eosinophils % 2.1 %; Hematocrit 52.1 % (35.3-44.9); Hemoglobin 16.3 g/dL (11.5-15.4); Immature Granulocytes % 0.5 % (0-4); Immature Platelets 3.9 % (1.1-6.1); Lymphocytes # 1.1 K/mcL (0.6-4.6); Lymphocytes % 13.3 %; Mean Corpuscular HGB Conc 31.3 g/dL (31.6-35.5); Mean Corpuscular Hemoglobin 28.4 pg (28.0-33.3); Mean Corpuscular Volume 90.9 fL (83.0-100.0); Mean Platelet Volume 10.1 fL (9.4-12.4); Monocytes # 0.7 K/mcL (0.0-1.3); Monocytes % 9.1 %; Platelet Count 131 K/mcL (140-400); Red Cell Distribution Width 14.6 % (11.5-14.5); Segmented Neutrophils % 74.3 %; White Blood Count 8.1 K/mcL (4.3-11.1)
[2021-02-06 05:35] LABS: BUN/Creatinine Ratio 19 (6-26); Blood Urea Nitrogen 19 mg/dL (8-23); Calcium 8.7 mg/dL (8.6-10.3); Carbon Dioxide 31 mEq/L (23-29); Chloride 96 mEq/L (98-107); Glucose 86 mg/dL (70-105); Osmolality,Calculated 286 (280-300); Potassium 3.6 mEq/L (3.5-5.1); Sodium 137 mEq/L (136-145); eGFR For African Americans > 60 (> 60); eGFR For Non-African Americans 55 (> 60)
[2021-02-06] MEDS: *HR* Heparin 5,000 UNIT/ML VIAL SQ SCH (06:23)
[2021-02-06] MEDS: Aspirin 81 MG TAB.CHEW PO SCH (07:45)
[2021-02-06] MEDS: Cholecalciferol (D-3) 1,000 UNIT (25MCG) TABLET PO SCH (07:45)
[2021-02-06] MEDS: Furosemide 40 MG TABLET PO SCH (07:46)
[2021-02-06] MEDS ORDERED: *HR* HYDROcodone/Acet 5/325 mg TABLET PO PRN (08:29)
[2021-02-06 11:54] VITALS: BP 151/84; PULSE 110; TEMP 97.8; O2SAT 96
[2021-02-07] MEDS ORDERED: Cholecalciferol (D-3) 1,000 UNIT (25MCG) TABLET PO SCH (09:00)
== END 2021-02-06 15:31 | disposition home health service (06) | DRG 689 ==
LOC: 3ANU → SUATTDRO 23:46
PROVIDERS: ADMIT Internal Medicine; ATTEND Internal Medicine